=== PATIENT | female | born 1935 | race Two or more races ===

== ENCOUNTER 2024-03-01 16:18 | Inpatient (IN) | payer MEDICARE, MEDICAID ==
[~2024-03-01] VITALS: Ht 162.6 cm; Wt 67.6 kg
[2024-03-01 16:40] VITALS: PULSE 69; RESP 16; O2SAT 99
[2024-03-01 17:23] LABS: Basophils # (auto) 0 10 ^3/uL (0-0.2); Basophils % (auto) 0.1 % (0.0-2.0); Eosinophils # (auto) 0 10 ^3/uL (0-0.8); Hematocrit 34.3 % (36.0-46.0); Hemoglobin 11.4 g/dL (12.2-16.2); Lymphocytes # (auto) 0.2 10 ^3/uL (0.4-5.4); Lymphocytes % (auto) 2.1 % (10.0-50.0); Mean Corpuscular Hemoglobin 30.9 pg (28.0-32.0); Mean Corpuscular Hgb Conc. 33.4 g/dL (32.0-36.0); Mean Corpuscular Volume 92.7 fL (80.0-100.0); Monocytes # (auto) 0.3 10 ^3/uL (0-1.3); Monocytes % (auto) 3.2 % (0.0-12.0); Neutrophils # (auto) 9.2 10 ^3/uL (1.6-8.6); Neutrophils % (auto) 94.6 % (37.0-80.0); Red Cell Distribution Width 13.4 % (11.8-14.3); White Blood Cell 9.7 10^3/uL (4.4-10.8)
[2024-03-01 17:42] LABS: Albumin 3.9 g/dL (3.2-4.8); Alkaline Phosphatase 86 U/L (46-116); Anion Gap 6 (5-15); Aspartate Aminotransferase < 8 U/L (13-40); BUN/Creatinine Ratio 11.7 (10.0-20.0); Blood Urea Nitrogen 11 mg/dL (9-23); Calcium 9.9 mg/dL (8.7-10.4); Carbon Dioxide 24 mmol/L (20-30); Chloride 104 mmol/L (98-107); Glucose 319 mg/dL (74-106); Potassium 4.5 mmol/L (3.5-5.1); Sodium 134 mmol/L (136-145)
[2024-03-01 17:43] LABS: Bilirubin, Total 0.6 mg/dL (0.2-1.0); Total Protein 6.6 g/dL (5.7-8.2)
[2024-03-01 17:48] LABS: Alanine Aminotransferase < 9 U/L (7-40)
[2024-03-01] MEDS: ACETAMINOPHEN 325 MG TAB PO ONE (18:13)
[2024-03-01 18:34] LABS: Urine Bacteria None Seen /hpf (None Seen)
[2024-03-01 18:43] LABS: Urine Blood Negative /uL (Negative); Urine Clarity Clear (Clear); Urine Color Light-Yellow (Yellow); Urine Protein, UAD Negative (Negative); Urine Specific Gravity 1.036 (1.001-1.035); Urine Urobilinogen Normal (Negative); Urine WBC 1 /hpf (0 - 5); Urine pH 7.5 (5.0-9.0)
[2024-03-01] MEDS ORDERED: NITROGLYCERIN 0.4 MG SL TAB SL PRN (19:15)
[2024-03-01] MEDS ORDERED: DEXTROSE (50%) 50ML SYRG IV PRN (19:15)
[2024-03-01] MEDS ORDERED: MORPHINE SULFATE INJ 2 MG/ml SYRG IV PRN (19:15)
[2024-03-01] MEDS: SODIUM CHLORIDE 0.9% 1,000 ML IV SCH (19:30)
[2024-03-01] MEDS ORDERED: LISI20TA56 PO (19:31)
[2024-03-01] MEDS ORDERED: PRAV20TA3 PO (19:31)
[2024-03-01 19:50] VITALS: PULSE 57; RESP 15; O2SAT 97
[2024-03-01] MEDS: PRAVASTATIN SODIUM 20 MG TAB PO SCH (22:04)
[2024-03-01] MEDS ORDERED: PIOG1TAB51 PO (22:08)
[2024-03-01] MEDS ORDERED: METF-372 PO (22:08)
[2024-03-01] MEDS ORDERED: DAPA1TAB4 PO (22:08)
[2024-03-01 22:13] VITALS: BP 105/39; PULSE 59; RESP 18; TEMP 98.3; O2SAT 96
[2024-03-01] MEDS ORDERED: ASPI-543 PO (22:26)
[2024-03-02] VITALS (8 sets, daily range): BP systolic 88–112; BP diastolic 39–53; PULSE 52–68; RESP 15–20; TEMP 98.1–99.9; O2SAT 95–99
[2024-03-02] MEDS: ACCU-CHEK COMFORT CURVE STRIP VI SCH (00:28)
[2024-03-02] MEDS: InsuLIN REG 1unit/0.01ml Soln (100units/ml) SC SCH (00:29)
[2024-03-02 07:10] LABS: Basophils # (auto) 0 10 ^3/uL (0-0.2); Basophils % (auto) 0.3 % (0.0-2.0); Eosinophils # (auto) 0 10 ^3/uL (0-0.8); Eosinophils % (auto) 0.1 % (0.0-7.0); Hematocrit 31.9 % (36.0-46.0); Hemoglobin 10.6 g/dL (12.2-16.2); Lymphocytes # (auto) 0.3 10 ^3/uL (0.4-5.4); Lymphocytes % (auto) 6.5 % (10.0-50.0); Mean Corpuscular Hemoglobin 30.8 pg (28.0-32.0); Mean Corpuscular Hgb Conc. 33.4 g/dL (32.0-36.0); Mean Corpuscular Volume 92.3 fL (80.0-100.0); Monocytes # (auto) 0.2 10 ^3/uL (0-1.3); Monocytes % (auto) 4.7 % (0.0-12.0); Neutrophils # (auto) 4.7 10 ^3/uL (1.6-8.6); Neutrophils % (auto) 88.4 % (37.0-80.0); Red Blood Cells 3.46 10^6/uL (4.0-5.20); Red Cell Distribution Width 13.3 % (11.8-14.3); White Blood Cell 5.3 10^3/uL (4.4-10.8)
[2024-03-02 07:50] LABS: Alkaline Phosphatase 78 U/L (46-116); Anion Gap 7 (5-15); Calcium 9.4 mg/dL (8.5-10.1); Carbon Dioxide 24 mmol/L (20-30); Chloride 108 mmol/L (98-107); Potassium 3.9 mmol/L (3.5-5.1); Sodium 139 mmol/L (136-145)
[2024-03-02 07:51] LABS: BUN/Creatinine Ratio 18.6 (10.0-20.0); Blood Urea Nitrogen 13 mg/dL (9-23); Glucose 149 mg/dL (74-106); Triglycerides 106 mg/dL (< 150)
[2024-03-02 07:52] LABS: LDL Cholesterol 74 mg/dL (< 100)
[2024-03-02 07:53] LABS: Albumin 3.6 g/dL (3.2-4.8); Aspartate Aminotransferase 9 U/L (13-40); Bilirubin, Total 0.5 mg/dL (0.2-1.0); Cholesterol 131 mg/dL (< 200); HDL Cholesterol 38 mg/dL (40-59); Total Protein 5.9 g/dL (5.7-8.2)
[2024-03-02 07:55] LABS: Alanine Aminotransferase < 9 U/L (7-40)
[2024-03-02 09:15] LABS: Hepatitis B Surface Antigen Negative (Negative)
[2024-03-02] MEDS: PANTOPRAZOLE 40 MG/10 ML VIAL INJ IV SCH (09:20)
[2024-03-02] MEDS: LISINOPRIL 20 MG TAB PO SCH (09:20)
[2024-03-02] MEDS: ENOXAPARIN SOD 40 MG/0.4 ML SYRINGE SC SCH (09:21)
[2024-03-02 09:37] LABS: Hepatitis C Antibody Negative (Negative)
[2024-03-02] MEDS: ACETAMINOPHEN 325 MG TAB PO PRN (15:04)
[2024-03-02] MEDS: AMPICILLIN & SULBACTAM SODIUM 3 GM in SODIUM CHL 0.9% 100 ML IV SCH (15:22)
[2024-03-03] VITALS (8 sets, daily range): BP systolic 92–131; BP diastolic 37–56; PULSE 54–70; RESP 15–19; TEMP 97.7–99.5; O2SAT 94–100
[2024-03-03 06:36] LABS: Anion Gap 7 (5-15); Carbon Dioxide 24 mmol/L (20-30); Chloride 108 mmol/L (98-107); Sodium 139 mmol/L (136-145)
[2024-03-03 06:39] LABS: Basophils # (auto) 0 10 ^3/uL (0-0.2); Basophils % (auto) 0.4 % (0.0-2.0); Eosinophils # (auto) 0 10 ^3/uL (0-0.8); Eosinophils % (auto) 0.1 % (0.0-7.0); Hematocrit 31.2 % (36.0-46.0); Hemoglobin 10.4 g/dL (12.2-16.2); Lymphocytes # (auto) 0.5 10 ^3/uL (0.4-5.4); Lymphocytes % (auto) 10.3 % (10.0-50.0); Mean Corpuscular Hemoglobin 30.9 pg (28.0-32.0); Mean Corpuscular Hgb Conc. 33.2 g/dL (32.0-36.0); Mean Corpuscular Volume 92.9 fL (80.0-100.0); Monocytes # (auto) 0.4 10 ^3/uL (0-1.3); Neutrophils # (auto) 3.5 10 ^3/uL (1.6-8.6); Neutrophils % (auto) 79.2 % (37.0-80.0); Nucleated Red Blood Cells % 0.1 %; Red Blood Cells 3.36 10^6/uL (4.0-5.20); Red Cell Distribution Width 13.3 % (11.8-14.3); White Blood Cell 4.4 10^3/uL (4.4-10.8)
[2024-03-03 06:42] LABS: BUN/Creatinine Ratio 16.1 (10.0-20.0); Blood Urea Nitrogen 10 mg/dL (9-23); Glucose 152 mg/dL (74-106)
[2024-03-03 06:44] LABS: INR 1.03 (0.9-1.15); Partial Thromboplastin Time 26.6 SEC (24.5-34.5); Prothrombin Time 10.9 sec (9.3-11.8)
[2024-03-03] MEDS: Ensure HIGH Protein Vanilla 8oz Bottle PO SCH (11:55)
[2024-03-04] VITALS (8 sets, daily range): BP systolic 108–144; BP diastolic 35–65; PULSE 49–76; RESP 16–22; TEMP 97–99; O2SAT 92–100
[2024-03-04] MEDS: AMPICILLIN & SULBACTAM SODIUM 3 GM in SODIUM CHL 0.9% 100 ML IV SCH (08:48)
[2024-03-04] MEDS: ceFAZolin 1GM/50ML 100 ML IV ONE (16:59)
[2024-03-04] MEDS ORDERED: fentaNYL CITRATE 100 MCG/2 ML VL ONE ×2 (19:01→19:16)
[2024-03-04] MEDS ORDERED: MIDAZOLAM HCL 2MG/2ML 2ml VIAL (1mg/ml) ONE (19:01)
[2024-03-04] MEDS: LIDOCAINE W/ EPINEPHRINE 1% 20ML VIAL ONE (19:34)
[2024-03-04] MEDS: BUPIVACAINE 0.5% P/F INJ 10 ML VIAL ONE (19:34)
[2024-03-04] MEDS ORDERED: HYDROmorphone HCL 2 MG/ML VL/or syr IV PRN ×2 (20:00→20:30)
[2024-03-04] MEDS ORDERED: NEOSTIGMINE 1 MG/ML INJ (10mg/10ML VIAL) ONE (20:13)
[2024-03-04] MEDS ORDERED: GLYCOPYRROLATE 0.2 MG/ML 1ML VIAL ONE (20:13)
[2024-03-04] MEDS: HYDROmorphone HCL 2 MG/ML VL/or syr IV PRN (21:35)
[2024-03-04] MEDS: ONDANSETRON HCL 4 MG/2 ML VIAL IV ONE (21:38)
[2024-03-05] VITALS (34 sets, daily range): BP systolic 98–131; BP diastolic 35–47; PULSE 43–74; RESP 12–26; TEMP 98–99.7; O2SAT 94–100
[2024-03-05] MEDS: ONDANSETRON HCL 4 MG/2 ML VIAL IV PRN (01:23)
[2024-03-05 06:17] LABS: Basophils # (auto) 0 10 ^3/uL (0-0.2); Basophils % (auto) 0.2 % (0.0-2.0); Eosinophils # (auto) 0 10 ^3/uL (0-0.8); Hemoglobin 11.6 g/dL (12.2-16.2); Lymphocytes # (auto) 0.7 10 ^3/uL (0.4-5.4); Mean Corpuscular Hemoglobin 31.4 pg (28.0-32.0); Mean Corpuscular Volume 92.4 fL (80.0-100.0); Monocytes # (auto) 0.6 10 ^3/uL (0-1.3); Monocytes % (auto) 9.1 % (0.0-12.0); Neutrophils # (auto) 5.4 10 ^3/uL (1.6-8.6); Neutrophils % (auto) 79.7 % (37.0-80.0); Red Blood Cells 3.69 10^6/uL (4.0-5.20); Red Cell Distribution Width 13.1 % (11.8-14.3); White Blood Cell 6.8 10^3/uL (4.4-10.8)
[2024-03-05 06:32] LABS: Alanine Aminotransferase 12 U/L (7-40); Albumin 3.3 g/dL (3.2-4.8); Alkaline Phosphatase 105 U/L (46-116); Anion Gap 9 (5-15); Aspartate Aminotransferase 26 U/L (13-40); BUN/Creatinine Ratio 13.6 (10.0-20.0); Bilirubin, Total 0.2 mg/dL (0.2-1.0); Blood Urea Nitrogen 8 mg/dL (9-23); Calcium 9.3 mg/dL (8.7-10.4); Carbon Dioxide 22 mmol/L (20-30); Chloride 107 mmol/L (98-107); Glucose 136 mg/dL (74-106); Potassium 4.6 mmol/L (3.5-5.1); Sodium 138 mmol/L (136-145); Total Protein 5.7 g/dL (5.7-8.2)
[2024-03-05] MEDS: metroNIDAZOLE 500 MG TAB PO SCH (13:45)
[2024-03-05] MEDS: SODIUM CHLORIDE 0.9% 500 ML IV ONE (13:46)
[2024-03-05] MEDS: levoFLOXacin 500 MG TAB PO SCH (13:46)
[2024-03-05] MEDS: HYDROcodone-ACET 5/325MG TAB PO PRN (17:23)
[2024-03-06] VITALS (15 sets, daily range): BP systolic 88–128; BP diastolic 36–48; PULSE 62–82; RESP 14–25; TEMP 98.4–100.2; O2SAT 90–99
[2024-03-06 05:24] LABS: Anion Gap 4 (5-15); Carbon Dioxide 23 mmol/L (20-30); Chloride 108 mmol/L (98-107); Sodium 135 mmol/L (136-145)
[2024-03-06 05:26] LABS: Calcium 8.8 mg/dL (8.7-10.4)
[2024-03-06 05:30] LABS: Glucose 196 mg/dL (74-106)
[2024-03-06 05:43] LABS: Basophils # (auto) 0 10 ^3/uL (0-0.2); Basophils % (auto) 0.1 % (0.0-2.0); Eosinophils # (auto) 0 10 ^3/uL (0-0.8); Eosinophils % (auto) 0.1 % (0.0-7.0); Hemoglobin 10.9 g/dL (12.2-16.2); Lymphocytes # (auto) 0.7 10 ^3/uL (0.4-5.4); Lymphocytes % (auto) 7.7 % (10.0-50.0); Mean Corpuscular Hemoglobin 31.6 pg (28.0-32.0); Mean Corpuscular Hgb Conc. 34.2 g/dL (32.0-36.0); Mean Corpuscular Volume 92.6 fL (80.0-100.0); Monocytes # (auto) 0.7 10 ^3/uL (0-1.3); Monocytes % (auto) 8.3 % (0.0-12.0); Neutrophils # (auto) 7.3 10 ^3/uL (1.6-8.6); Neutrophils % (auto) 83.8 % (37.0-80.0); Nucleated Red Blood Cells % 0.1 %; Red Blood Cells 3.45 10^6/uL (4.0-5.20); Red Cell Distribution Width 13.4 % (11.8-14.3); White Blood Cell 8.7 10^3/uL (4.4-10.8)
[2024-03-06 06:04] LABS: BUN/Creatinine Ratio 8.9 (10.0-20.0); Blood Urea Nitrogen < 5 mg/dL (9-23)
[2024-03-07] VITALS (8 sets, daily range): BP systolic 96–117; BP diastolic 36–49; PULSE 62–86; RESP 16–18; TEMP 97.9–98.5; O2SAT 95–99
[2024-03-07] MEDS: Glucerna Carbsteady SHAKE Vanilla 8oz PO SCH (19:10)
[2024-03-08] VITALS (8 sets, daily range): BP systolic 103–132; BP diastolic 40–58; PULSE 57–78; RESP 16–20; TEMP 98–98.6; O2SAT 90–98
[2024-03-09] VITALS (10 sets, daily range): BP systolic 108–136; BP diastolic 51–61; PULSE 62–72; RESP 17–96; TEMP 97.9–99.1; O2SAT 95–96
[2024-03-09 12:38] LABS: Basophils # (auto) 0 10 ^3/uL (0-0.2); Basophils % (auto) 0.3 % (0.0-2.0); Eosinophils # (auto) 0 10 ^3/uL (0-0.8); Eosinophils % (auto) 0.3 % (0.0-7.0); Hematocrit 29.5 % (36.0-46.0); Hemoglobin 9.8 g/dL (12.2-16.2); Lymphocytes # (auto) 0.9 10 ^3/uL (0.4-5.4); Lymphocytes % (auto) 13.4 % (10.0-50.0); Mean Corpuscular Hemoglobin 30.8 pg (28.0-32.0); Mean Corpuscular Hgb Conc. 33.2 g/dL (32.0-36.0); Monocytes # (auto) 0.6 10 ^3/uL (0-1.3); Monocytes % (auto) 8.4 % (0.0-12.0); Neutrophils # (auto) 5.1 10 ^3/uL (1.6-8.6); Neutrophils % (auto) 77.6 % (37.0-80.0); Nucleated Red Blood Cells % 0.1 %; Red Blood Cells 3.17 10^6/uL (4.0-5.20); Red Cell Distribution Width 14.1 % (11.8-14.3); White Blood Cell 6.6 10^3/uL (4.4-10.8)
[2024-03-09 13:06] LABS: Alkaline Phosphatase 164 U/L (46-116); Anion Gap 4 (5-15); Aspartate Aminotransferase 14 U/L (13-40); BUN/Creatinine Ratio 10.3 (10.0-20.0); Blood Urea Nitrogen 6 mg/dL (9-23); Calcium 8.5 mg/dL (8.5-10.1); Carbon Dioxide 26 mmol/L (20-30); Chloride 106 mmol/L (98-107); Glucose 272 mg/dL (74-106); Potassium 3.9 mmol/L (3.5-5.1); Sodium 136 mmol/L (136-145)
[2024-03-09 13:08] LABS: Bilirubin, Total 0.3 mg/dL (0.2-1.0); Total Protein 5.1 g/dL (5.7-8.2)
[2024-03-09 13:11] LABS: Alanine Aminotransferase 9 U/L (7-40)
[2024-03-09] MEDS: levoFLOXacin 500MG 100 ML IV ONE (14:44)
[2024-03-09] MEDS: GASTROGRAFIN 120 ML SOL ONE (18:53)
[2024-03-10] VITALS (11 sets, daily range): BP systolic 98–129; BP diastolic 48–60; PULSE 61–77; RESP 16–22; TEMP 98.1–99.2; O2SAT 16–97
[2024-03-10] MEDS: levoFLOXacin 250MG 50 ML IV SCH (10:00)
[2024-03-10] MEDS: FUROSEMIDE 20 MG/2 ML VIAL IV ONE (12:25)
[2024-03-10] MEDS: POTASSIUM CHL 20 Meq TABLET PO ONE (12:26)
[2024-03-11] VITALS (9 sets, daily range): BP systolic 101–132; BP diastolic 40–66; PULSE 60–78; RESP 16–21; TEMP 98.1–98.9; O2SAT 0–99
[2024-03-11 06:33] LABS: Anion Gap 3 (5-15); Carbon Dioxide 32 mmol/L (20-30); Chloride 103 mmol/L (98-107); Sodium 138 mmol/L (136-145)
[2024-03-11 06:34] LABS: Calcium 8.9 mg/dL (8.5-10.1)
[2024-03-11 06:39] LABS: BUN/Creatinine Ratio 12.2 (10.0-20.0); Blood Urea Nitrogen 6 mg/dL (9-23); Glucose 183 mg/dL (74-106)
[2024-03-11 07:16] LABS: Hematocrit 27.8 % (36.0-46.0); Hemoglobin 9.5 g/dL (12.2-16.2); Mean Corpuscular Hemoglobin 31.2 pg (28.0-32.0); Mean Corpuscular Hgb Conc. 34.1 g/dL (32.0-36.0); Mean Corpuscular Volume 91.4 fL (80.0-100.0); Red Blood Cells 3.05 10^6/uL (4.0-5.20); Red Cell Distribution Width 13.9 % (11.8-14.3); White Blood Cell 6.5 10^3/uL (4.4-10.8)
[2024-03-11 07:19] LABS: Basophils % (manual) 0 (0.0-2.0); Blast Cells 0; Eosinophils % (manual) 0 (0-7); Metamyelocytes % 0; Myelocytes % 0; Promyelocytes % 0; Reactive Lymphocytes 0
[2024-03-11 08:09] LABS: Band Neutrophils % (manual) 1; Lymphocytes % (manual) 13 (10.0-50.0); Monocytes % (manual) 7 (0-12)
[2024-03-11 08:10] LABS: Platelet Estimate Adequate
[2024-03-11 08:11] LABS: RBC Morphology Normal
[2024-03-11] MEDS: ASPirin 81 mg TAB PO ONE (12:29)
[2024-03-11] MEDS: FUROSEMIDE 20 MG/2 ML VIAL IV ONE (12:29)
[2024-03-11] MEDS: POTASSIUM CHL 10 Meq TABLET PO ONE (12:29)
[2024-03-11] MEDS ORDERED: ATROPINE SULFATE 0.4 MG/1 ML VIAL IV ONE (16:00)
[2024-03-11] MEDS: DOCUSATE SOD 100 MG CAP PO PRN (21:54)
[2024-03-12 01:00] VITALS: BP 120/46; PULSE 64; RESP 17; TEMP 98.4; O2SAT 95
[2024-03-12 05:00] VITALS: BP 127/36; PULSE 71; RESP 18; TEMP 98.8; O2SAT 94
[2024-03-12] MEDS: PANTOPRAZOLE 40 MG TAB PO SCH (06:44)
[2024-03-12 07:34] LABS: Base Excess 8.4 mmol/L (-2.0-2.0)
[2024-03-12 08:00] VITALS: PULSE 72; RESP 16; O2SAT 90
[2024-03-12 09:00] VITALS: BP 138/57; PULSE 72; RESP 16; TEMP 98.4; O2SAT 90
[2024-03-12] MEDS: ASPirin 81 mg TAB PO SCH (09:17)
[2024-03-12] MEDS ORDERED: ASPI-498 OR (12:10)
[2024-03-12] MEDS ORDERED: ZOFR4T PO (12:10)
[2024-03-12] MEDS ORDERED: PANT40TA2 PO (12:10)
[2024-03-12 13:00] VITALS: BP 123/58; PULSE 75; RESP 16; TEMP 98.3; O2SAT 95
[2024-03-12 14:40] VITALS: BP 123/58; PULSE 75; RESP 16; TEMP 98.3; O2SAT 95
== END 2024-03-12 16:20 | disposition home or self-care (01) | DRG 853 ==
LOC: ER 16:18 → TELE 19:09 → TELE-WESTW 21:50 → DOU IN ICU 03-05 01:00 → TELE-EAST 03-06 10:10 → EAST 03-11 15:38
PROVIDERS: ADMIT Nurse Practitioner Family; ATTEND Internal Medicine
PROC: 0FT44ZZ Resection of Gallbladder, Percutaneous Endoscopic Approach (ICD-10-PCS; principal; 2024-03-04 18:58)
DX: A41.9 Sepsis, unspecified organism (principal); J96.00 Acute respiratory failure, unspecified whether with hypoxia or hypercapnia; K85.90 Acute pancreatitis without necrosis or infection, unspecified; K80.12 Calculus of gallbladder with acute and chronic cholecystitis without obstruction; K56.7 Ileus, unspecified; I82.612 Acute embolism and thrombosis of superficial veins of left upper extremity; G90.8 Other disorders of autonomic nervous system; E78.5 Hyperlipidemia, unspecified; I10 Essential (primary) hypertension; E11.9 Type 2 diabetes mellitus without complications; I44.0 Atrioventricular block, first degree; Z82.49 Family history of ischemic heart disease and other diseases of the circulatory system; Z87.442 Personal history of urinary calculi
CPT/HCPCS: 36415; 36600; 71045; 74018; 74176; 74250; 76700; 80048; 80053; 80061; 81001; 82805; 82962; 83036; 83690; 84484; 85007; 85025; 85027; 85610; 85730; 86803; 86850; 86900; 86901; 87040; 87081; 87086; 87340; 93005; 93306; 93886; 93970; 93971; 96360; 97110; 97116; 97163; 97530; C9113; G0378; J0461; J1815; J1956; J2250; J2405; J3490

== ENCOUNTER 2024-03-16 14:42 | Emergency (ER) | payer MEDICARE, MEDICAID ==
[~2024-03-16] VITALS: Ht 160 cm; Wt 79.0 kg
[~2024-03-16 14:42] MED LIST: ASPI-498 OR; ASPI-543 PO; DAPA1TAB4 PO; LISI20TA56 PO; METF-372 PO; PANT40TA2 PO; PIOG1TAB51 PO; PRAV20TA3 PO; ZOFR4T PO
[2024-03-16 15:11] LABS: Urine Bacteria None Seen /hpf (None Seen)
[2024-03-16 15:27] LABS: Urine Blood Negative /uL (Negative); Urine Clarity Clear (Clear); Urine Color Colorless (Yellow); Urine Protein, UAD Negative (Negative); Urine Specific Gravity 1.027 (1.001-1.035); Urine Urobilinogen Normal (Negative); Urine WBC 1 /hpf (0 - 5); Urine pH 7.5 (5.0-9.0)
[2024-03-16 16:14] LABS: Basophils # (auto) 0 10 ^3/uL (0-0.2); Basophils % (auto) 0.5 % (0.0-2.0); Eosinophils # (auto) 0 10 ^3/uL (0-0.8); Eosinophils % (auto) 0.6 % (0.0-7.0); Hematocrit 31.6 % (36.0-46.0); Hemoglobin 10.6 g/dL (12.2-16.2); Lymphocytes # (auto) 1.1 10 ^3/uL (0.4-5.4); Lymphocytes % (auto) 17.4 % (10.0-50.0); Mean Corpuscular Hemoglobin 30.7 pg (28.0-32.0); Mean Corpuscular Hgb Conc. 33.4 g/dL (32.0-36.0); Mean Corpuscular Volume 91.9 fL (80.0-100.0); Monocytes # (auto) 0.4 10 ^3/uL (0-1.3); Monocytes % (auto) 6.4 % (0.0-12.0); Neutrophils # (auto) 4.7 10 ^3/uL (1.6-8.6); Neutrophils % (auto) 75.1 % (37.0-80.0); Nucleated Red Blood Cells % 0.2 %; Red Blood Cells 3.43 10^6/uL (4.0-5.20); White Blood Cell 6.3 10^3/uL (4.4-10.8)
[2024-03-16 16:39] LABS: Alanine Aminotransferase 11 U/L (7-40); Albumin 3.9 g/dL (3.2-4.8); Alkaline Phosphatase 159 U/L (46-116); Anion Gap 2 (5-15); Aspartate Aminotransferase < 8 U/L (13-40); BUN/Creatinine Ratio 12.2 (10.0-20.0); Blood Urea Nitrogen 9 mg/dL (9-23); Calcium 9.5 mg/dL (8.7-10.4); Carbon Dioxide 31 mmol/L (20-30); Chloride 102 mmol/L (98-107); Glucose 339 mg/dL (74-106); Magnesium 1.6 mg/dL (1.6-2.6); Sodium 135 mmol/L (136-145)
[2024-03-16 16:40] LABS: Bilirubin, Total 0.3 mg/dL (0.2-1.0); Total Protein 6.6 g/dL (5.7-8.2)
[2024-03-16] MEDS: InsuLIN REG 1unit/0.01ml Soln (100units/ml) IV ONE (17:15)
[2024-03-16] MEDS: SODIUM CHLORIDE 0.9% 1,000 ML IV ONE (17:15)
[2024-03-16] MEDS ORDERED: METF-372 PO (19:52)
[2024-03-16 20:10] VITALS: BP 172/64; PULSE 70; RESP 18; TEMP 97.8; O2SAT 96
== END 2024-03-16 20:22 | disposition home or self-care (01) ==
LOC: ER 14:42
DX: E11.65 Type 2 diabetes mellitus with hyperglycemia (principal); E78.5 Hyperlipidemia, unspecified; I10 Essential (primary) hypertension; Z90.49 Acquired absence of other specified parts of digestive tract
CPT/HCPCS: 36415; 80053; 81001; 82962; 83605; 83735; 85025; 96361; 96374; 99283; J1815; J7030

== ENCOUNTER 2024-06-21 14:38 | Inpatient (IN) | payer MEDICARE, MEDICAID ==
[~2024-06-21] VITALS: Ht 162.6 cm; Wt 94.5 kg
[2024-06-21 15:33] LABS: Basophils # (auto) 0 10 ^3/uL (0-0.2); Basophils % (auto) 0.4 % (0.0-2.0); Eosinophils # (auto) 0 10 ^3/uL (0-0.8); Eosinophils % (auto) 0.2 % (0.0-7.0); Hematocrit 36.9 % (36.0-46.0); Hemoglobin 12.3 g/dL (12.2-16.2); Lymphocytes % (auto) 30.3 % (10.0-50.0); Mean Corpuscular Hemoglobin 31.4 pg (28.0-32.0); Mean Corpuscular Hgb Conc. 33.3 g/dL (32.0-36.0); Mean Corpuscular Volume 94.3 fL (80.0-100.0); Monocytes # (auto) 0.3 10 ^3/uL (0-1.3); Monocytes % (auto) 8.6 % (0.0-12.0); Neutrophils % (auto) 60.5 % (37.0-80.0); Platelet Count (auto) 155 10^3/uL (140-450); Red Blood Cells 3.91 10^6/uL (4.0-5.20); Red Cell Distribution Width 15.2 % (11.8-14.3); White Blood Cell 3.4 10^3/uL (4.4-10.8)
[2024-06-21 15:49] LABS: Albumin 4.1 g/dL (3.2-4.8); Alkaline Phosphatase 75 U/L (46-116); Anion Gap 9 (5-15); Aspartate Aminotransferase < 8 U/L (13-40); BUN/Creatinine Ratio 13.9 (10.0-20.0); Bilirubin, Total 0.3 mg/dL (0.2-1.0); Blood Urea Nitrogen 14 mg/dL (9-23); Carbon Dioxide 25 mmol/L (20-31); Chloride 101 mmol/L (98-107); Sodium 135 mmol/L (136-145); Total Protein 6.6 g/dL (5.7-8.2)
[2024-06-21 16:13] LABS: Alanine Aminotransferase < 9 U/L (7-40)
[2024-06-21 16:15] LABS: Glucose 410 mg/dL (74-106)
[2024-06-21] MEDS: SODIUM CHLORIDE 0.9% 1,000 ML IV ONE (18:18)
[2024-06-21] MEDS: InsuLIN REG 1unit/0.01ml Soln (100units/ml) IV ONE (18:19)
[2024-06-21 19:20] VITALS: PULSE 64; RESP 20; O2SAT 95
[2024-06-21 20:04] LABS: Urine Bacteria None Seen /hpf (None Seen)
[2024-06-21 20:25] LABS: Urine Blood Negative /uL (Negative); Urine Clarity Clear (Clear); Urine Color Colorless (Yellow); Urine Protein, UAD Negative (Negative); Urine Specific Gravity 1.012 (1.001-1.035); Urine Urobilinogen Normal (Negative); Urine WBC 1 /hpf (0 - 5)
[2024-06-21] MEDS ORDERED: ONDANSETRON HCL 4 MG/2 ML VIAL IV PRN (22:15)
[2024-06-21] MEDS ORDERED: DEXTROSE (50%) 50ML SYRG IV PRN (22:15)
[2024-06-21] MEDS: ACETAMINOPHEN 325 MG TAB PO PRN (22:16)
[2024-06-21 23:55] VITALS: BP 141/50; PULSE 54; RESP 16; TEMP 97.8; O2SAT 95
[2024-06-22] VITALS (7 sets, daily range): BP systolic 113–151; BP diastolic 40–71; PULSE 54–67; RESP 18–20; TEMP 97.3–98.3; O2SAT 94–97
[2024-06-22] MEDS: ACCU-CHEK COMFORT CURVE STRIP VI SCH (00:24)
[2024-06-22] MEDS: InsuLIN REG 1unit/0.01ml Soln (100units/ml) SC SCH (00:34)
[2024-06-22 07:19] LABS: Chloride 108 mmol/L (98-107); Potassium 4.1 mmol/L (3.5-5.1); Sodium 142 mmol/L (136-145)
[2024-06-22 07:20] LABS: Anion Gap 4 (5-15); Calcium 9.8 mg/dL (8.7-10.4); Carbon Dioxide 30 mmol/L (20-31)
[2024-06-22 07:25] LABS: BUN/Creatinine Ratio 17.8 (10.0-20.0); Blood Urea Nitrogen 13 mg/dL (9-23); Glucose 116 mg/dL (74-106)
[2024-06-22] MEDS: ASPirin 81 mg TAB PO SCH (09:07)
[2024-06-22] MEDS: LISINOPRIL 20 MG TAB PO SCH (09:07)
[2024-06-22] MEDS: ENOXAPARIN SOD 40 MG/0.4 ML SYRINGE SC SCH (09:08)
[2024-06-22] MEDS: PRAVASTATIN SODIUM 20 MG TAB PO SCH (22:30)
[2024-06-22] MEDS ORDERED: LORazepam 2MG/ML-1ML VIAL IV PRN (22:45)
[2024-06-23] VITALS (8 sets, daily range): BP systolic 115–146; BP diastolic 51–59; PULSE 58–64; RESP 17–19; TEMP 97.9–98.5; O2SAT 91–96
[2024-06-24 01:00] VITALS: BP 131/45; PULSE 59; RESP 18; TEMP 97.6; O2SAT 92
[2024-06-24 05:00] VITALS: BP 116/47; PULSE 54; RESP 19; TEMP 97.4; O2SAT 92
[2024-06-24 07:07] LABS: RPR Non Reactive (Non Reactive)
[2024-06-24 08:00] VITALS: RESP 18; O2SAT 94
[2024-06-24] MEDS: LACTULOSE 20Gm/30ML SOLN PO ONE (08:17)
[2024-06-24 09:00] VITALS: BP 132/53; PULSE 63; RESP 16; TEMP 98.2; O2SAT 90
[2024-06-24] MEDS ORDERED: ASPI-325 PO (09:12)
[2024-06-24 10:09] VITALS: BP 132/53; PULSE 62; RESP 18; TEMP 98; O2SAT 95
== END 2024-06-24 12:50 | disposition home or self-care (01) | DRG 69 ==
LOC: ER 14:38 → OVERFLOW 22:09 → WEST WING 23:51
PROVIDERS: ADMIT Internal Medicine; ATTEND Internal Medicine
DX: G45.9 Transient cerebral ischemic attack, unspecified (principal); E11.00 Type 2 diabetes mellitus with hyperosmolarity without nonketotic hyperglycemic-hyperosmolar coma (NKHHC); I63.81 Other cerebral infarction due to occlusion or stenosis of small artery; E11.65 Type 2 diabetes mellitus with hyperglycemia; I10 Essential (primary) hypertension; E78.5 Hyperlipidemia, unspecified; G31.9 Degenerative disease of nervous system, unspecified; Z90.49 Acquired absence of other specified parts of digestive tract; Z82.49 Family history of ischemic heart disease and other diseases of the circulatory system; Z83.3 Family history of diabetes mellitus; Z79.82 Long term (current) use of aspirin; B94.8 Sequelae of other specified infectious and parasitic diseases
CPT/HCPCS: 36415; 70450; 70551; 71045; 80048; 80053; 81001; 82306; 82607; 82962; 83036; 84443; 84484; 85025; 86592; 93005; 95819; 96361; 96374; 97163; G0378; J1815

== ENCOUNTER → 2024-08-04 | Outpatient (CLI) | payer MEDICARE, MEDICAID ==
[~2024-08-04] MED LIST changes: +ASPI-325 PO; -ASPI-498 OR; -ASPI-543 PO; -DAPA1TAB4 PO; -PANT40TA2 PO; -ZOFR4T PO
== END | disposition home or self-care (01) ==
LOC: LAB 12:28
PROVIDERS: ATTEND Internal Medicine
DX: G89.29 Other chronic pain (principal); R10.9 Unspecified abdominal pain; K86.2 Cyst of pancreas; D37.9 Neoplasm of uncertain behavior of digestive organ, unspecified; R93.89 Abnormal findings on diagnostic imaging of other specified body structures; K86.89 Other specified diseases of pancreas; Z79.899 Other long term (current) drug therapy
CPT/HCPCS: 36415; 82565; 84520; 86301

== ENCOUNTER 2024-08-23 23:56 | Inpatient (IN) | payer MEDICARE, MEDICAID ==
[~2024-08-23] VITALS: Ht 157.5 cm; Wt 53.1 kg
[2024-08-24] MEDS: levETIRAcetam 1000 mg/100ml 100 ML IV ONE (00:15)
--- NOTE | 2024-08-24 00:15 | ED.PDOC ---
History of Present Illness HPI Comments 89-year-old female with PMHx HLD, HTN, DM presents postictal s/p seizure- activity. Patient had a witnessed seizure at home by family whom called 911. Patient is pleasantly confused and is a poor historian at this time. Unable to verify if patient has a seizure disorder. No seizure meds listed in medication l ist per EMS. Patient is hyperglycemic at 341. No other symptoms or modifying factors present at this time. Chief Complaint: Seizure Time Seen by MD: 00:09 Primary Care Provider: UNKNOWN Reviewed Notes: Medications, Allergies Allergies: Coded Allergies: No Known Drug Allergy (Verified Allergy, Unknown, 03/01/24) Home Meds Active Scripts Aspirin (Aspirin Low Dose) 81 Mg Tab, 81 MG PO DAILY for 30 Days, #30 TAB Prov:PAIGE RAVI 06/24/24 Metformin Hydrochloride (Metformin Hcl) 1,000 Mg Tab, 1 TAB PO BID for 30 Days, #60 TAB 0 Refills Prov:ANTONY OLIVERA DO 03/16/24 Reported Medications Metformin Hydrochloride (Metformin Hcl) 1,000 Mg Tab, 1 TAB PO BID 03/01/24 Pioglitazone Hydrochloride (PIOGLITAZONE HCL) 45 Mg Tab, 1 TAB PO DAILY 03/01/24 Lisinopril (Lisinopril) 20 Mg Tab, 1 TAB PO DAILY, #30 TAB 5 Refills 03/01/24 Pravastatin Sodium (PRAVACHOL TABLET) 20 Mg Tb, 2 TAB PO HS 03/01/24 Information Source: Emergency Med Personnel Mode of Arrival: EMS Severity: Moderate Timing: Minutes Duration: Since onset Prehospital treatment: Accucheck (341) Past Medical History PAST MEDICAL HISTORY: DM, High Lipids, HTN Surgical History: Cholecystectomy, Hernia Repair [employer] History: Denies all [employer] Hx Family History Family History: Reviewed,noncontributory to illness Social History Smoker: Non-Smoker Alcohol: Denies ETOH Use Drugs: Denies Drug Use Lives In: Home Constitutional: denies: chills, diaphoresis, fatigue, fever, malaise, sweats, weakness, others EENTM: denies: blurred vision, double vision, ear bleeding, ear discharge, ear drainage, ear pain, ear ringing, eye pain, eye redness, hearing loss, mouth pain, mouth swelling, nasal discharge, nose bleeding, nose congestion, nose pain, photophobia, tearing, throat pain, throat swelling, voice changes, others Respiratory: denies: cough, hemoptysis, orthopnea, SOB at rest, shortness of breath, SOB with excertion, stridor, wheezing, others Cardiovascular: denies: chest pain, dizzy spells, diaphoresis, Dyspnea on exertion, edema, irregular heart beat, left arm pain, lightheadedness, palpitations, PND, syncope, others Gastrointestinal: denies: abdomen distended, abdominal pain, blood streaked bowels, constipated, diarrhea, dysphagia, difficulty swallowing, hematemesis, melena, nausea, poor appetite, poor fluid intake, rectal bleeding, rectal pain, vomiting, others Genitourinary: denies: abnormal vagina bleeding, burning, dyspareunia, dysuria, flank pain, frequency, hematuria, incontinence, pain, , vagina discharge, urgency, others Neurological: reports: seizure; denies: dizziness, fainting, headache, left sided numbness, left sided weakness, numbness, paresthesia, pre-existing deficit, right sided numbness, right sided weakness, speech problems, tingling, tremors, weakness, others Musculoskeletal: denies: back pain, gout, joint pain, joint swelling, muscle pain, muscle stiffness, neck pain, others Integumetry: denies: bruises, change in color, change in hair/nails, dryness, laceration, lesions, lumps, rash, wounds, others Allergic/Immunocompromised: denies: Difficulty Healing, Frequent Infections, Hives, Itching, others Hematologic/Lymphatic: denies: anemia, blood clots, easy bleeding, easy bruising, swollen glands, others Endocrine: denies: excessive hunger, excessive sweating, excessive thirst, excessive urination, flushing, intolerance to cold, intolerance to heat, unexplained weight gain, unexplained weight loss, others Psychiatric: denies: anxiety, bipolar disorder, depression, hopeless, panic disorder, schizophrenia, sleepless, suicidal, others All Other Systems: Reviewed and Negative Physical Exam General Appearance: No Apparent Distress, Normal, Other (PLEASANTLY CONFUSED; POSTICTAL) HEENT: Normal ENT Inspection, Pharynx Normal, TMs Normal Neck: Full Range of Motion, Non-Tender, Normal, Normal Inspection Respiratory: Chest Non-Tender, Lungs Clear, No Accessory Muscle Use, No Respiratory Distress, Normal Breath Sounds Cardiovascular: No Edema, No JVD, No Murmur, No Gallop, Normal Peripheral Pulses, Regular Rate/Rhythm Breast Exam: Deferred Gastrointestinal: No Organomegaly, Non Tender, No Pulsatile Mass, Normal Bowel Sounds, Soft Genitalia: Deferred Pelvic: Deferred Rectal: Deferred Extremities: No calf tenderness, Normal capillary refill, Normal inspection, Normal range of motion, Non-tender, No pedal edema Musculoskeletal : Apperance: Normal Neurologic: Alert, conduit worker II-XII nml as Tested, No Motor Deficits, Normal Affect, Normal Mood, No Sensory Deficits Cerebellar Function: Normal Reflexes: Normal Skin: Dry, Normal Color, Warm Lymphatic: No Adenopathy Was a procedure done? Was a procedure done?: No Differential Dx Considerations may include: Epilepsy, electrolyte abnormalities, infectious etiology X-Ray, Labs, Meds, VS Vital Signs Date Time Temp Pulse Resp B/P (MAP) Pulse Ox O2 Delivery O2 Flow Rate FiO2 08/24/24 04:00 98 20 148/67 (94) 95 08/24/24 02:00 98.0 112 20 165/77 (106) 99 98.0 08/24/24 01:45 Nasal Cannula* 2 28 08/24/24 01:16 119 22 158/87 (110) 99 08/24/24 00:06 98.4 70 18 172/71 (104) 96 08/23/24 23:58 70 Lab Test 08/24/24 01:58 08/24/24 00:22 Range/Units Urine Color Colorless Yellow Urine Clarity Clear Clear Urine pH 6.5 5.0-9.0 Urine Specific [place] 1.016 1.001-1.035 Urine Protein Negative Negative Urine Ketones Negative Negative Urine Blood Negative Negative /uL Urine Nitrite Negative Negative Urine Bilirubin Negative Negative Urine Urobilinogen Normal Negative mg/dL Urine Leukocyte Esterase 2+ Negative /uL Urine RBC 1 0 - 4 /hpf Urine WBC 5 0 - 5 /hpf Urine Squamous Epithelial Cells Few <5 /hpf Urine Bacteria None seen None Seen /hpf Urine Glucose 4+ H Normal mg/dL White Blood Count 3.6 L 4.4-10.8 10^3/uL Red Blood Count 3.68 L 4.0-5.20 10^6/uL Hemoglobin 11.7 L 12.2-16.2 g/dL Hematocrit 35.1 L 36.0-46.0 % Mean Corpuscular Volume 95.2 80.0-100.0 fL Mean Corpuscular Hemoglobin 31.7 28.0-32.0 pg Mean Corpuscular Hemoglobin Concent 33.4 32.0-36.0 g/dL Red Cell Distribution Width 14.3 11.8-14.3 % Platelet Count 166 140-450 10^3/uL Mean Platelet Volume 9.1 6.9-10.8 fL Neutrophils (%) (Auto) 67.4 37.0-80.0 % Lymphocytes (%) (Auto) 23.3 10.0-50.0 % Monocytes (%) (Auto) 8.8 0.0-12.0 % Eosinophils (%) (Auto) 0.1 0.0-7.0 % Basophils (%) (Auto) 0.4 0.0-2.0 % Neutrophils # (Auto) 2.4 1.6-8.6 10 ^3/uL Lymphocytes # (Auto) 0.8 0.4-5.4 10 ^3/uL Monocytes # (Auto) 0.3 0-1.3 10 ^3/uL Eosinophils # (Auto) 0 0-0.8 10 ^3/uL Basophils # (Auto) 0 0-0.2 10 ^3/uL Nucleated Red Blood Cells 0.0 % Sodium Level 139 136-145 mmol/L Potassium Level 4.1 3.5-5.1 mmol/L Chloride Level 100 98-107 mmol/L Carbon Dioxide Level 30 20-31 mmol/L Anion Gap 9 5-15 Blood Urea Nitrogen 17 9-23 mg/dL Creatinine 0.86 0.550-1.02 mg/dL Glomerular Filtration Rate Calc 65 >90 mL/min BUN/Creatinine Ratio 19.8 10.0-20.0 Serum Glucose 311 H 74-106 mg/dL Calcium Level 10.4 8.7-10.4 mg/dL Current Medications Medications (Trade) Dose Ordered Sig/Mumtaz Route Start Time Stop Time Status Last Admin Levetiracetam 100 ml @ 400 mls/hr ONCE ONCE IV 08/24/24 00:15 08/24/24 00:29 DC 08/24/24 00:15 Time of 1ST Reevaluation: 00:39 Reevaluation 1ST: Unchanged Patient Education/Counseling: Diagnosis, Treatment, Prognosis Family Education/Counseling: No Family Present Departure 1 Departure Time of Disposition: 04:33 (Patient with multiple seizures despite treatment as well as well as a likely syncopal episode that occurred while here. We will admit patient for further workup.) Impression: Primary Impression: Seizure Additional Impression: Syncope and collapse Disposition: ADMITTED INPATIENT Admit to: Med Surg Condition: Serious Critical Care Note Critical Care Time?: No Stability Stability form required: No I personally scribed for SELMA EPTERSON MD ([email or web address]) on 08/24/24 at 00:15. Electronically submitted by Jarred Mathias ([email or web address]). SELMA PETERSON MD Aug 24, 2024 00:15
[2024-08-24 00:39] LABS: Basophils # (auto) 0 10 ^3/uL (0-0.2); Basophils % (auto) 0.4 % (0.0-2.0); Eosinophils # (auto) 0 10 ^3/uL (0-0.8); Eosinophils % (auto) 0.1 % (0.0-7.0); Hematocrit 35.1 % (36.0-46.0); Hemoglobin 11.7 g/dL (12.2-16.2); Lymphocytes # (auto) 0.8 10 ^3/uL (0.4-5.4); Lymphocytes % (auto) 23.3 % (10.0-50.0); Mean Corpuscular Hemoglobin 31.7 pg (28.0-32.0); Mean Corpuscular Hgb Conc. 33.4 g/dL (32.0-36.0); Mean Corpuscular Volume 95.2 fL (80.0-100.0); Monocytes # (auto) 0.3 10 ^3/uL (0-1.3); Monocytes % (auto) 8.8 % (0.0-12.0); Neutrophils # (auto) 2.4 10 ^3/uL (1.6-8.6); Neutrophils % (auto) 67.4 % (37.0-80.0); Platelet Count (auto) 166 10^3/uL (140-450); Red Blood Cells 3.68 10^6/uL (4.0-5.20); Red Cell Distribution Width 14.3 % (11.8-14.3); White Blood Cell 3.6 10^3/uL (4.4-10.8)
[2024-08-24 00:47] LABS: Anion Gap 9 (5-15); Carbon Dioxide 30 mmol/L (20-31); Chloride 100 mmol/L (98-107); Potassium 4.1 mmol/L (3.5-5.1); Sodium 139 mmol/L (136-145)
[2024-08-24 00:48] LABS: Calcium 10.4 mg/dL (8.7-10.4)
[2024-08-24 00:53] LABS: BUN/Creatinine Ratio 19.8 (10.0-20.0); Blood Urea Nitrogen 17 mg/dL (9-23)
[2024-08-24 00:55] LABS: Glucose 311 mg/dL (74-106)
[2024-08-24 02:45] LABS: Urine Bacteria None Seen /hpf (None Seen)
[2024-08-24 03:10] LABS: Urine Blood Negative /uL (Negative); Urine Clarity Clear (Clear); Urine Color Colorless (Yellow); Urine Protein, UAD Negative (Negative); Urine Specific Gravity 1.016 (1.001-1.035); Urine Urobilinogen Normal (Negative); Urine WBC 5 /hpf (0 - 5); Urine pH 6.5 (5.0-9.0)
--- NOTE | 2024-08-24 04:05 | DVH ---
CHEST RADIOGRAPH Indication: seizure and collapse Technique: Single frontal view of the chest was obtained Comparison: XY CHEST PORTABLE on DOS: 06/21/24, XY CHEST PORTABLE on DOS: 03/01/24 IMPRESSION: There are low lung volumes. The heart is prominent size. Increased interstitial markings and pulmona ry vascular congestion. No sizable effusion or pneumothorax.
--- NOTE | 2024-08-24 04:07 | DVH ---
CT HEAD WITHOUT CONTRAST INDICATION: seizure and collapse EXAM DATE: 08/24/2024 03:41 AM COMPARISON: MRI BRAIN HEAD WO CONTRAST on DOS: 06/22/24, CT HEAD WITHOUT CONTRAST on DOS: 06/21/24 RADIATION DOSE: CTDIvol: 58.14 mGy, DLP: 940.01 mGy*cm Technique: Noncontrast CT scans of the head were obtained from the vertex to the skull base. Sagittal and coronal reconstructions were provided. All CT scans at this medical facility are performed using dose modulation techniques as appropriate t o a performed exam including the following: Automated exposure control was utilized; adjustment of th e MA and/or KV according to patient size; and use of iterative reconstruction technique. FINDINGS: The posterior fossa demonstrates a 4th ventricle to midline without mass impression. The ventricles a ppear appropriate in size and symmetry, unchanged. Focal hypodensity in the left basal ganglia likely represents prior lacunar infarct. There is diffuse cerebral atrophy. No findings to suggest acute te rritorial infarction, intracranial mass, or midline shift. No intracranial hemorrhage. The calvarium appears intact. IMPRESSION: 1. No acute intracranial abnormality. 2. Cerebral atrophy and prior lacunar infarct.
[2024-08-24] MEDS ORDERED: NITROGLYCERIN 0.4 MG SL TAB SL PRN (05:15)
[2024-08-24] MEDS ORDERED: MORPHINE SULFATE INJ 2 MG/ml SYRG IV PRN (05:15)
--- NOTE | 2024-08-24 05:16 | DVHHPRES ---
History of Present Illness Resident Creating Document: CONNIE AVALOS RESIDENT History of Present Illness Ms. Moyer, a 89 year old female with past medical history significant for hypertension, diabetes, dyslipidemia, CAD burden, cholecystectomy, hernia repair previous history of stroke / TIA during January of this year comes with seizure /seizure-like symptom witnessed by the family. Previously patient had been hospitalized during June and January of this year in the hospital with possible partial simple seizure, likely triggered by hypoglycemia with Ritesh paralysis/questionable stroke/ TIA. In-hospital neurology evaluation was done. This time patient presents with seizure BG WNL but noted to have UTI which could be a possible trigger. Patient admitted in hospital at [facility] for further evaluation and treatment. Primarily Uzbek speaking, poor historian but denies any other systemic signs except incontinence or bladder fullness. Cardiovascular: HTN, hyperipidemia BANQUET CAPTAIN: CVA Past Surgical History: Cholecystectomy, Other (hernia repair) Family History: None (Non contributary. ) Smoke: No ALCOHOL: none Drugs: None Lives: with Family Domestic Violence: Neg Review of Systems Constitutional: No: Fever, Chills, Sweats, Weakness, Malaise, Other Eyes: No: Pain, Vision change, Conjunctivae inflammation, Eyelid inflammation, Other, Redness ENT: No: Ear pain, Ear discharge, Nose pain, Nose discharge, Nose congestion, Mouth pain, Mouth swelling, Throat pain, Throat swelling, Other Respiratory: No: Cough, Dry, Shortness of breath, SOB with excertion, Wheezing, Hemoptysis, Pleuritic Pain, Sputum, Wheezing, Other Cardiovascular: No: Chest Pain, Palpitations, Orthopnea, Paroxysmal Noc. Dyspnea, Edema, Lt Headedness, Other Gastrointestinal: No: Nausea, Vomiting, Abdominal Pain, Diarrhea, Constipation, Melena, Hematochezia, Other Genitourinary: No Dysuria, No Frequency, No Incontinence, No Hematuria, No Retention, No Other Musculoskeletal: No: other, neck pain, shoulder pain, arm pain, back pain, hand pain, leg pain, foot pain Neurological: Weakness, Numbness, Seizures Allergies: Coded Allergies: No Known Drug Allergy (Verified Allergy, Unknown, 03/01/24) Medications Current Medications Medications Dose Ordered Sig/Mumtaz Route Start Time Stop Time Status Last Admin Dose Admin Nitroglycerin 0.4 mg Q5MINP PRN SL 08/24/24 05:15 Morphine Sulfate 2 mg Q30M PRN IV 08/24/24 05:15 Exam Vital Signs Vital Signs Date Time Temp Pulse Resp B/P (MAP) Pulse Ox O2 Delivery O2 Flow Rate FiO2 08/24/24 04:00 98 20 148/67 (94) 95 08/24/24 02:00 98.0 98.0 08/24/24 01:45 Nasal Cannula* 2 28 General Appearance: Alert, Oriented X3, Cooperative, No acute distress HEENT: Atraumatic, EOMI, Mucous membr. moist/pink Respiratory: Clear to auscultation, Normal air movement, Other (on 2L NC likely for comfort measures. saturation well. ) Cardiovascular: Regular rate, Normal S1, Normal S2, No murmurs Abdominal: Normal bowel sounds, Soft, No tenderness, Other (suprapubic tenderness noted. no CVA angle tenderness. ) Extremities: No clubbing, No cyanosis, No edema, Normal pulses, No tenderness/swelling Skin: No rashes, No breakdown, No significant lesion Neuro: Normal speech, Strength at 5/5 X4 ext, Normal tone, Sensation intact, Cranial nerves 3-12 NL, Reflexes 2+, Other (Gait deferred.) Psych/Mental Status: Mental status NL, Mood NL Labs/Xrays Labs Test 08/24/24 01:58 08/24/24 00:22 Range/Units Urine Color Colorless Yellow Urine Clarity Clear Clear Urine pH 6.5 5.0-9.0 Urine Specific [place] 1.016 1.001-1.035 Urine Protein Negative Negative Urine Ketones Negative Negative Urine Blood Negative Negative /uL Urine Nitrite Negative Negative Urine Bilirubin Negative Negative Urine Urobilinogen Normal Negative mg/dL Urine Leukocyte Esterase 2+ Negative /uL Urine RBC 1 0 - 4 /hpf Urine WBC 5 0 - 5 /hpf Urine Squamous Epithelial Cells Few <5 /hpf Urine Bacteria None seen None Seen /hpf Urine Glucose 4+ H Normal mg/dL White Blood Count 3.6 L 4.4-10.8 10^3/uL Red Blood Count 3.68 L 4.0-5.20 10^6/uL Hemoglobin 11.7 L 12.2-16.2 g/dL Hematocrit 35.1 L 36.0-46.0 % Mean Corpuscular Volume 95.2 80.0-100.0 fL Mean Corpuscular Hemoglobin 31.7 28.0-32.0 pg Mean Corpuscular Hemoglobin Concent 33.4 32.0-36.0 g/dL Red Cell Distribution Width 14.3 11.8-14.3 % Platelet Count 166 140-450 10^3/uL Mean Platelet Volume 9.1 6.9-10.8 fL Neutrophils (%) (Auto) 67.4 37.0-80.0 % Lymphocytes (%) (Auto) 23.3 10.0-50.0 % Monocytes (%) (Auto) 8.8 0.0-12.0 % Eosinophils (%) (Auto) 0.1 0.0-7.0 % Basophils (%) (Auto) 0.4 0.0-2.0 % Neutrophils # (Auto) 2.4 1.6-8.6 10 ^3/uL Lymphocytes # (Auto) 0.8 0.4-5.4 10 ^3/uL Monocytes # (Auto) 0.3 0-1.3 10 ^3/uL Eosinophils # (Auto) 0 0-0.8 10 ^3/uL Basophils # (Auto) 0 0-0.2 10 ^3/uL Nucleated Red Blood Cells 0.0 % Sodium Level 139 136-145 mmol/L Potassium Level 4.1 3.5-5.1 mmol/L Chloride Level 100 98-107 mmol/L Carbon Dioxide Level 30 20-31 mmol/L Anion Gap 9 5-15 Blood Urea Nitrogen 17 9-23 mg/dL Creatinine 0.86 0.550-1.02 mg/dL Glomerular Filtration Rate Calc 65 >90 mL/min BUN/Creatinine Ratio 19.8 10.0-20.0 Serum Glucose 311 H 74-106 mg/dL Calcium Level 10.4 8.7-10.4 mg/dL [place] [address] Ph: [phone] DIAGNOSTIC IMAGING Diagnostic Imaging Report : [id number] Signed PATIENT: MOJGAN MOYER I ACCT: [id number] UNIT: [id number] : 1935 LOC: ER ROOM / BED: / AGE / SEX: 89 / F ADM STATUS: REG ER SERVICE 0336 ORDERING PHYSICIAN: SELMA PETERSON MD PROCEDURE(s): HWOCT - HEAD WITHOUT CONTRAST REASON: seizure and collapse ORDER NUMBER(s): [id number], ACCESSION NUMBER(s): [id number] CT HEAD WITHOUT CONTRAST INDICATION: seizure and collapse EXAM DATE: 08/24/2024 03:41 AM COMPARISON: MRI BRAIN HEAD WO CONTRAST on DOS: 06/22/24, CT HEAD WITHOUT CONTRAST on DOS: 06/21/24 RADIATION DOSE: CTDIvol: 58.14 mGy, DLP: 940.01 mGy*cm Technique: Noncontrast CT scans of the head were obtained from the vertex to the skull base. Sagittal and coronal reconstructions were provided. All CT scans at this medical facility are performed using dose modulation techniques as appropriate to a performed exam including the following: Automated exposure control was utilized; adjustment of the MA and/or KV according to patient size; and use of iterative reconstruction technique. FINDINGS: The posterior fossa demonstrates a 4th ventricle to midline without mass impression. The ventricles appear appropriate in size and symmetry, unchanged. Focal hypodensity in the left basal ganglia likely represents prior lacunar infarct. There is diffuse cerebral atrophy. No findings to suggest acute territorial infarction, intracranial mass, or midline shift. No intracranial hemorrhage. The calvarium appears intact. IMPRESSION: 1. No acute intracranial abnormality. 2. Cerebral atrophy and prior lacunar infarct. ATED BY: NEAL CASTRO MD DICTATED DATE/TIME: 08/24/24405 SIGNED BY: NEAL CASTRO MD SIGNED DATE/TIME: 08/24/24405 CC: [place] [address] Ph: [phone] DIAGNOSTIC IMAGING Diagnostic Imaging Report : [id number] Signed PATIENT: MOJGAN MOYER I ACCT: [id number] UNIT: [id number] : 1935 LOC: ER ROOM / BED: / AGE / SEX: 89 / F ADM STATUS: REG ER SERVICE 5 ORDERING PHYSICIAN: SELMA PETERSON MD PROCEDURE(s): CXRP - CHEST PORTABLE REASON: seizure and collapse ORDER NUMBER(s): [id number], ACCESSION NUMBER(s): [id number] CHEST RADIOGRAPH Indication: seizure and collapse Technique: Single frontal view of the chest was obtained Comparison: XY CHEST PORTABLE on DOS: 06/21/24, XY CHEST PORTABLE on DOS: 03/01/24 IMPRESSION: There are low lung volumes. The heart is prominent size. Increased interstitial markings and pulmonary vascular congestion. No sizable effusion or pneumothorax. ATED BY: NEAL CASTRO MD DICTATED DATE/TIME: 08/24/24404 SIGNED BY: NEAL CASTRO MD SIGNED DATE/TIME: 08/24/24404 CC: Assessment/Plan Assessment/Plan Assessment: An 89-year-old Uzbek speaking female with a history of hypertension, diabetes, dyslipidemia, CAD, cholecystectomy, hernia repair, and previous stroke/TIA, presents with seizure-like symptoms, likely triggered by a UTI, and is admitted for further evaluation and treatment. Poor historian need further information from the caregiver/family. Plan: #1 Possible breakthrough seizure: Limited history, Uzbek-speaking, noted by family. Status post IV Keppra load, p.o. 500 b.i.d. Keppra, Neurology consult, fall precaution, aspiration precaution, seizure precaution. UTI could be trigger. Head CT unremarkable, #2 Previous history of recurrent seizure: Undergoing evaluation with Neurology reveal possible trigger of hypoglycemia previously but this time seems like UTI triggered it. We will treat underlying conditions along with possible breakthrough seizure. Further recommendation as per Neurology evaluation. #3 Acute UTI: UA positive, urine culture, blood colchicine, IV ceftriaxone, previous microbiology noted no resistant bacteria. CVA angle tenderness negative. #4 Severe Sepsis likely due to above: SIRS response with elevated lactate, on fluid repeat lactate. continue iv abx. #5 Known diabetic: Check HbA1c, at home takes metformin, pioglitazone. Continue SSI, at this point patient is NPO, sc HS SSI mild. #6 Dyslipidemia: Pravastatin 20 mg at home, continue. #7 underlying CAD burden with family history of CAD: Continue aspirin 81 and pravastatin 20 mg home dose. Check CMP. #8 Acute hypoxic respiratory failure: Chest bilateral clear, on 2 L of nasal cannula oxygen with no baseline oxygen, possible aspiration pneumonia, at this point not clear, no leukocytosis, unlabored breathing. If leukocytosis or any breathing distress increases repeat CXR and start empiric antibiotics Covering oral mucosa goals including IV ceftriaxone and azithromycin. Try to wean oxygen to keep saturation above 94%. #9 Chronic normocytic anemia: Iron panel to check, FOBT to rule out GI bleed ing. #10: Urinary incontinence: foleys' catheter to keep the pelvic area dry and clean. #11: Known history of primary hypertension: At home lisinopril 20 mg daily at home. presented with elevated blood pressure but normalized on its own without intervention. Unlikely a case of stroke needing permissive hypertension. Target blood pressure as per AHA / ACC for diabetic adult 130/80. Blood pressure within normal limit. Continue monitoring no need of antihypertensives at this moment. PUD prophylaxis: protonix 40mg Daily. DVT prophylaxis: Lovenox 40mg with brisk movement. Barriers to discharge: Medical diagnosis and management in progress. Neurology evaluation needed. Continue treatment med surge unit. PCP: Patient could not remember Specialist Relevant To Admission: Neurology Case discussed with Dr. Sommer. Code Status: Full Code. Discussion and care decisions needed total 25 minutes bedside. Plan discussed with: Patient, Other (Primary team, RN.) My Orders Orders - CONNIE AVALOS Procedure Category Date Status Time Admit ADMIT 08/24/24 Transmitted 05:13 Nitroglycerin [facility] 08/24/24 In Process Sublingual (Ntrostat 05:15 Morphine Sulfate [facility] 08/24/24 In Process Injection 05:15 Oxygen By Nasal RT 08/24/24 Transmitted Cannula 05:13 Stat Ekg For Chest [facility] 08/24/24 In Process Pain 05:13 Notify Md Of Changes [facility] 08/24/24 In Process From Base 05:13 Scale Adjuster For [facility] 08/24/24 In Process 24 Hours 05:13 Emergency Dysrhythmia [facility] 08/24/24 In Process Protocol 05:13 Rhythm Strips Once [facility] 08/24/24 In Process Every Shift 05:13 Date of Service: Aug 24, 2024 Billing Provider: LADI SOMMER MD Common Visit Codes: [id number] INP/OBS CARE (HIGH) Secondary Visit Codes: [id number] CARE PLAN 30 MINUTES CONNIE AVALOS Aug 24, 2024 05:16 LADI SOMMER MD Aug 24, 2024 12:13
[2024-08-24] MEDS: cefTRIAXone 1GM/50ML D5W 50 ML IV SCH (06:32)
[2024-08-24] MEDS ORDERED: DEXTROSE (50%) 50ML SYRG IV PRN (07:00)
[2024-08-24 07:40] LABS: Amphetamine Screen, Urine Neg (NEGATIVE)
[2024-08-24 07:42] LABS: Barbiturate Scree,Urine Neg (NEGATIVE); Benzodiazephine Screen, Urine Neg (NEGATIVE); Cocaine Screen, Urine Neg (NEGATIVE)
[2024-08-24 07:43] LABS: Cannabinoid Screen, Urine Neg (NEGATIVE); Opiate Scree,Urine Neg (NEGATIVE); Phencyclidine Screen, Urine Neg (NEGATIVE)
[2024-08-24 07:45] LABS: Lactic Acid w/Reflex 2.4 mmol/L (0.4-2.0)
[2024-08-24 08:12] LABS: Alanine Aminotransferase 13 U/L (7-40); Alkaline Phosphatase 73 U/L (46-116); Anion Gap 7 (5-15); BUN/Creatinine Ratio 20.7 (10.0-20.0); Blood Urea Nitrogen 18 mg/dL (9-23); Calcium 9.9 mg/dL (8.7-10.4); Carbon Dioxide 27 mmol/L (20-31); Chloride 104 mmol/L (98-107); Potassium 4.3 mmol/L (3.5-5.1); Sodium 138 mmol/L (136-145)
[2024-08-24 08:13] LABS: Albumin 3.9 g/dL (3.2-4.8); Bilirubin, Total 0.4 mg/dL (0.2-1.0)
[2024-08-24 08:16] LABS: Aspartate Aminotransferase 12 U/L (13-40); Glucose 301 mg/dL (74-106)
[2024-08-24] MEDS: LACTATED RINGER'S 1,000 ML IV SCH (08:57)
[2024-08-24 09:45] VITALS: PULSE 59; RESP 19; O2SAT 98
[2024-08-24] MEDS: ASPirin 81 mg TAB PO SCH (10:45)
[2024-08-24] MEDS: levETIRAcetam 500 MG TAB PO SCH (10:45)
[2024-08-24] MEDS: ACCU-CHEK COMFORT CURVE STRIP VI SCH (12:10)
[2024-08-24] MEDS: InsuLIN REG 1unit/0.01ml Soln (100units/ml) SC SCH (12:22)
--- NOTE | 2024-08-24 14:38 | DVH ---
BILATERAL LOWER EXTREMITY VENOUS DOPPLER CLINICAL HISTORY: elevated D-DIMER Technique: Duplex Doppler evaluation of the deep venous systems of both lower extremities from the co mmon femoral veins to the popliteal veins including color Doppler and spectral/pulsed waveform analys is was performed. COMPARISON: US BILAT LOWER DVT on DOS: 03/12/24, US LT UPPER DVT on DOS: 03/11/24 FINDINGS: The right and left common femoral, superficial femoral, popliteal, posterior tibial and peroneal vei ns appear patent with normal augmentation, phasicity, compressibility and color-flow. IMPRESSION: 1. There is no sonographic evidence for DVT in the lower extremities. HS:Y
--- NOTE | 2024-08-24 14:48 | ECG ---
[facility] Test Date: 2024-08-23 Test Time: 23:58:10 Pat Name: MOJGAN MEEKS Department: ED Room: 0278 Gender: F Compressed Gases Tester: : 1935 Requested By: SELMA PETERSON Order Number: [id number] Reading MD: Mustapha Thakkar Measurements Intervals [place] Rate: 70 P: -22 PA: 222 QRS: 61 QRSD: 106 T: 42 QT: 414 QTc: 447 Interpretive Statements Sinus rhythm Prolonged PA interval Electronically Signed On 08-28-2024 12:34:39 PST by Mustapha Thakkar Please click the below link to view image of tracing.
[2024-08-24 20:00] VITALS: PULSE 75
--- NOTE | 2024-08-24 21:02 | DVHPNRES ---
Progress Note Date Seen: Aug 24, 2024 Resident Creating Document: VIOLETA ROBB RESIDENT Medical Necessity Reason Pt with a Central, PICC or Fol: No Medical Necessity Reason possible seizures vs seizure like activities hyperglycemia Subjective Review of Systems This is an 89 year old and bengali speaking female with past medical history significant for hypertension, diabetes, gallstone induce pancreatitis s/p cholecystectomy who presented to the ED after what is presummed to be a seizure or seizure like activities witness by her grand daughter. Patient does not remember have any seizure like activities and currently not on any anti- seizure medications. Efforts to reach the grand daughtr proved futile. Nevertheless, her initials vitals temp: 98.4, HR:70, RR: 18, and BP: 172/71. Lab work shows: wbc: 3.6, Hgb A1c: 10.6, lactic acid 2.4--> 1.8 , blood sugar: 262--> 192 and positive UA for UTI and D-dimer 0.66 H, CT head showed no acute intracranial abnormality, but cerebral atrophy and prior lacunar infarct. Chest x-ray showed there are low lung volumes. The heart is prominent size. Increased interstitial markings and pulmonary vascular congestion. No sizable effusion or pneumothorax. US venous showed no sonographic evidence for DVT in the lower extremities. Constitutional: Denies fever no chills no feeling of malaise HEENT: Denies headache, ear pain, ear discharges, conjunctivitis, nasal discharge throat pain Cardiovascular: Denies chest pain, palpitation, orthopnea, PND, or pedal edema Respiratory: Denies shortness of breath, cough cough, sputum production, hemoptysis, GI: Denies abdominal pain, nausea, vomiting, diarrhea, hematemesis, hematochezia, : Denies frequency, urgency, hematuria, Endocrine: Denies unintentional weight gain or weight loss, feeling of hot flashes, Logan: Denies easy bruising, bleeding disorders, epistaxis Musculoskeletal: Denies joint pains; endorsed right calf pain Psych: No evidence of depression, vanna, suicidal ideation Past medical history: hypertension, diabetes, gallstone induce pancreatitis Past surgical history: s/p cholecystectomy Social history: retired, no smoking or alcohol Family history: Noncontributory Objective vital signs Vital Sign Date Time Temp Pulse Resp B/P (MAP) Pulse Ox O2 Delivery O2 Flow Rate FiO2 08/24/24 19:04 64 22 113/35 (61) 93 08/24/24 09:45 Nasal Cannula* 2 28 08/24/24 02:00 98.0 98.0 medications Current Medications Medications Dose Ordered Sig/Mumtaz Route Start Time Stop Time Status Last Admin Dose Admin Nitroglycerin 0.4 mg Q5MINP PRN SL 08/24/24 05:15 Morphine Sulfate 2 mg Q30M PRN IV 08/24/24 05:15 Ceftriaxone Sodium 50 ml @ 100 mls/hr DAILY@09 IV 08/24/24 06:30 08/24/24 06:32 100 MLS/HR Levetiracetam 500 mg BID PO 08/24/24 10:00 08/24/24 10:45 500 MG Pravastatin Sodium 20 mg HS PO 08/24/24 22:00 Aspirin 81 mg DAILY PO 08/24/24 10:00 08/24/24 10:45 81 MG Diagnostic Test (Pha) 1 strip Q6HR 08/24/24 12:00 08/24/24 18:35 1 STRIP Insulin Human Regular Q6HR SC 08/24/24 12:00 08/24/24 18:41 3 UNITS Dextrose 50 ml UD PRN IV 08/24/24 07:00 Examination General examination- Not in acute distress HEENT: PEERLA, no acute nasal discharge Chest: S1-S2 audible, rate and rhythm regular, no murmur Lung: Mild crackles, no wheeze or rhonchi Abdomen: Nondistend, BS+, nontenderness, no organomegaly Musculoskeletal: no acute joint swelling or tenderness Lower extremity: Right calf tenderness Neurological: cranial nerves intact, no acute dysarthria or dysphagia Psychiatry-- Normal mood and affect Skin- no acute rash or purpura laboratory and microbiology Laboratory Tests 08/24/24 06:57 08/24/24 00:22 Test 08/24/24 06:57 Range/Units Serum Glucose 301 H 74-106 mg/dL Problem List/Assessment/Plan Problem List/Assessment/Plan Questionable seizure activity --> Normal electrolytes values --> ? previous history, not on any anti-seizure medication -->CT head : No acute intracranial abnormality;Cerebral atrophy and prior lacunar infarct --> swallow evaluation --> Neuro consult Uncontrolled diabetes --> hemoglobin A1c 10.6 --> Serum glucose 262 on admission --> mild sliding scale UTI Ceftriaxone Dyslipidemia --> HOLD oral meds lactic acidosis --> Lactic acid: 2.4--> 1.8 Pulmonary congestion --> IV lasix 40 mg one time Cardiomegaly -->Echo 02/2024: estimated ejection fraction 55%. Right calf pain --> Negative for DVT --> CK: unremarkable History of gallstone induced pancreatitis status post cholecystectomy Care discussed for more than 35 minutes Case and plan discussed with Dr. Solares Plan discussed with: Patient My Orders My Orders Orders - VIOLETA ROBB RESIDENT Procedure Category Date Status Time Bilat Lower Dvt US 08/24/24 Resulted 12:53 St Eval Swallow Funct ST 08/24/24 Logged 45min 13:16 Covid19 Antigen [facility] 08/24/24 Logged Fall Precautions [facility] 08/24/24 In Process Initiated 13:16 Neuro Checks Q2hrs [facility] 08/24/24 In Process 13:16 Pt Request For Service PT 08/24/24 Logged 13:16 Strict Aspiration [facility] 08/24/24 In Process Precautions 13:16 Regular Diet DIET 08/24/24 Transmitted Dinner Date of Service: Aug 24, 2024 Billing Provider: MACK SMITH MD Common Visit Codes: [id number] INP/OBS CARE(HIGH) VIOLETA ROBB Aug 24, 2024 21:02 MACK SMITH MD Aug 26, 2024 10:18
[2024-08-24] MEDS: PRAVASTATIN SODIUM 20 MG TAB PO SCH (22:07)
[2024-08-24 22:35] VITALS: PULSE 67; RESP 18; O2SAT 97
[2024-08-24] MEDS: FUROSEMIDE 40 MG/4 ML VIAL IV ONE (22:47)
[2024-08-25] VITALS (9 sets, daily range): BP systolic 102–138; BP diastolic 39–57; PULSE 57–88; RESP 16–19; TEMP 97.4–100; O2SAT 94–100
[2024-08-25] MEDS ORDERED: INSUINJ37 SC (00:32)
[2024-08-25 02:09] LABS: COVID19 ANTIGEN SOFIA FIA NEGATIVE (NEGATIVE)
[2024-08-25 07:36] LABS: Basophils # (auto) 0 10 ^3/uL (0-0.2); Basophils % (auto) 0.3 % (0.0-2.0); Eosinophils # (auto) 0 10 ^3/uL (0-0.8); Eosinophils % (auto) 0.2 % (0.0-7.0); Hematocrit 34.7 % (36.0-46.0); Hemoglobin 11.8 g/dL (12.2-16.2); Lymphocytes # (auto) 1.1 10 ^3/uL (0.4-5.4); Lymphocytes % (auto) 25.5 % (10.0-50.0); Mean Corpuscular Hgb Conc. 33.8 g/dL (32.0-36.0); Mean Corpuscular Volume 94.6 fL (80.0-100.0); Monocytes # (auto) 0.4 10 ^3/uL (0-1.3); Monocytes % (auto) 9.4 % (0.0-12.0); Neutrophils # (auto) 2.7 10 ^3/uL (1.6-8.6); Neutrophils % (auto) 64.6 % (37.0-80.0); Nucleated Red Blood Cells % 0.3 %; Platelet Count (auto) 173 10^3/uL (140-450); Red Blood Cells 3.67 10^6/uL (4.0-5.20); White Blood Cell 4.2 10^3/uL (4.4-10.8)
[2024-08-25 08:00] LABS: Alanine Aminotransferase 12 U/L (7-40); Albumin 3.9 g/dL (3.2-4.8); Alkaline Phosphatase 60 U/L (46-116); Anion Gap 7 (5-15); BUN/Creatinine Ratio 24.5 (10.0-20.0); Bilirubin, Total 0.5 mg/dL (0.2-1.0); Blood Urea Nitrogen 23 mg/dL (9-23); Calcium 10.4 mg/dL (8.7-10.4); Carbon Dioxide 31 mmol/L (20-31); Chloride 105 mmol/L (98-107); Potassium 3.6 mmol/L (3.5-5.1); Sodium 143 mmol/L (136-145); Total Protein 6.1 g/dL (5.7-8.2)
[2024-08-25 08:01] LABS: Aspartate Aminotransferase 9 U/L (13-40); Glucose 111 mg/dL (74-106)
[2024-08-25] MEDS ORDERED: PNEUMOCOCCAL VACC POLYS 25 MCG/0.5 ML VIAL IM ONE (10:00)
[2024-08-25] MEDS ORDERED: DEXTROSE (50%) 50ML SYRG IV PRN (19:30)
--- NOTE | 2024-08-25 19:56 | DVHPNRES ---
Progress Note Date Seen: Aug 25, 2024 Resident Creating Document: VIOLETA ROBB RESIDENT Medical Necessity Reason Pt with a Central, PICC or Fol: No Medical Necessity Reason Seizure vs seizure like activities Subjective Review of Systems Patient seen and examine at the bedside Patient has no new complaints. No new seizures activities or seizure like activities noted Patient currently on Keppra and Ceftriaxone Objective vital signs Vital Sign Date Time Temp Pulse Resp B/P (MAP) Pulse Ox O2 Delivery O2 Flow Rate FiO2 08/25/24 17:00 97.4 65 16 138/57 (84) 95 97.4 08/25/24 08:00 Room Air* 0 21 Total Intake and Output 08/24/24 08/24/24 08/25/24 15:00 23:00 07:00 Intake Total 283.33 ml 0 ml Output Total 700 ml 1475 ml Balance 283.33 ml -700 ml -1475 ml medications Current Medications Medications Dose Ordered Sig/Mumtaz Route Start Time Stop Time Status Last Admin Dose Admin Nitroglycerin 0.4 mg Q5MINP PRN SL 08/24/24 05:15 Morphine Sulfate 2 mg Q30M PRN IV 08/24/24 05:15 Ceftriaxone Sodium 50 ml @ 100 mls/hr DAILY@09 IV 08/24/24 06:30 08/25/24 10:13 100 MLS/HR Levetiracetam 500 mg BID PO 08/24/24 10:00 08/25/24 10:13 500 MG Pravastatin Sodium 20 mg HS PO 08/24/24 22:00 08/24/24 22:07 20 MG Aspirin 81 mg DAILY PO 08/24/24 10:00 08/25/24 10:13 81 MG Diagnostic Test (Pha) 1 strip Q6HR 08/24/24 12:00 08/25/24 18:00 1 STRIP Insulin Human Regular Q6HR SC 08/24/24 12:00 08/25/24 17:12 6 UNITS Dextrose 50 ml UD PRN IV 08/24/24 07:00 Examination General examination- Not in acute distress HEENT: PEERLA, no acute nasal discharge Chest: S1-S2 audible, rate and rhythm regular, no murmur Lung: Mild crackles, no wheeze or rhonchi Abdomen: Nondistend, BS+, nontenderness, no organomegaly Musculoskeletal: no acute joint swelling or tenderness Lower extremity: Right calf tenderness Neurological: cranial nerves intact, no acute dysarthria or dysphagia Psychiatry-- Normal mood and affect Skin- no acute rash or purpura laboratory and microbiology Laboratory Tests 08/25/24 06:22 Test 08/25/24 06:22 Range/Units Serum Glucose 111 H 74-106 mg/dL Microbiology Date/Time Source Procedure Growth Status 08/25/24 01:35 Nose MRSA Screen - Final Complete 08/24/24 06:57 Blood Blood Culture - Preliminary NO GROWTH AFTER 24 HOURS OF INCUBATION. Resulted 08/24/24 01:58 Voided Urine Urine Culture - Preliminary Resulted Problem List/Assessment/Plan Problem List/Assessment/Plan Questionable seizure activity --> Normal electrolytes values --> ? previous history, not on any anti-seizure medication -->CT head : No acute intracranial abnormality;Cerebral atrophy and prior lacunar infarct --> swallow evaluation --> Neuro consult--> pending Uncontrolled diabetes --> hemoglobin A1c 10.6 --> Serum glucose trending up --> Lantus 10 unit in the morning --> moderate sliding scale UTI --> Continue ceftriaxone --> Pending urine culture Possible sepssis due to UTI --> Contineu ceftriaxone Dyslipidemia --> HOLD oral meds lactic acidosis --> Lactic acid: 2.4--> 1.8 Pulmonary congestion --> IV lasix 40 mg one time Cardiomegaly -->Echo 02/2024: estimated ejection fraction 55%. Right calf pain --> Negative for DVT --> CK: unremarkable History of gallstone induced pancreatitis status post cholecystectomy Care discussed for more than 35 minutes Case and plan discussed with Dr. Solares Plan discussed with: Patient My Orders My Orders Orders - VIOLETA ROBB RESIDENT Procedure Category Date Status Time * Neurology Consult CONS 08/24/24 Transmitted 20:34 * Swallow Request ST 08/24/24 Transmitted 20:59 Date of Service: Aug 25, 2024 Billing Provider: MACK SMITH MD Common Visit Codes: [id number] INP/OBS CARE(HIGH) VIOLETA ROBB Aug 25, 2024 19:56 MACK SMITH MD Aug 26, 2024 10:08
[2024-08-25] MEDS: ACCU-CHEK COMFORT CURVE STRIP VI SCH (22:39)
[2024-08-25] MEDS: InsuLIN REG 1unit/0.01ml Soln (100units/ml) SC SCH (22:40)
[2024-08-26 05:00] VITALS: BP 103/46; PULSE 53; RESP 17; TEMP 98.1; O2SAT 93
[2024-08-26] MEDS: INSULIN LANTUS (GLARGINE) 1 /0.01ml (100units/ml) SC SCH ×2 (06:11→22:00)
[2024-08-26 08:00] VITALS: PULSE 60; PULSE 64; RESP 17; O2SAT 92
[2024-08-26 09:00] VITALS: BP 123/68; PULSE 64; RESP 17; TEMP 98.6; O2SAT 92
[2024-08-26 13:00] VITALS: BP 112/58; PULSE 61; RESP 16; TEMP 98.2; O2SAT 92
--- NOTE | 2024-08-26 14:13 | DVH ---
RENAL ULTRASOUND CLINICAL HISTORY: RULE out kidney stones TECHNIQUE: Multiple ultrasound images of the kidneys and bladder were obtained. COMPARISON: None FINDINGS: The right kidney measures 10.4 cm in length. The left kidney measures 10.6 cm. There is bilateral loida al pelviectasis. There is no sonographic evidence nephrolithiasis. There is no discrete renal lesion identified by ultrasound. There is a Cassidy catheter within the bladder which is decompressed. IMPRESSION: 1. Bilateral renal pelviectasis. There is no sonographic evidence of nephrolithiasis. HS:Y
[2024-08-26 17:00] VITALS: BP 113/61; PULSE 67; RESP 16; TEMP 98; O2SAT 90
[2024-08-26 20:00] VITALS: PULSE 62; PULSE 76; RESP 18; O2SAT 92
--- NOTE | 2024-08-26 20:30 | DVHPNRES ---
Progress Note Date Seen: Aug 26, 2024 Resident Creating Document: VIOLETA ROBB RESIDENT Medical Necessity Reason Pt with a Central, PICC or Fol: No Medical Necessity Reason recurrent seizures no episodes since admission Subjective Review of Systems Patient seen and examine at the bedside. Her daughter present and gave us a history of her mother's seizures activities Patient has no new complaints and has not had any seizure or seizure-like activity since admission to the hospital. According to the daughter, patient was noted to have seizures starting with the right arm then it had progressive the other arm. Patient became stiff stretched in the chair and shaking with her entire body involved. had bladder incontinence. Postictal, patient was noted to be drooling from the right side. Patient used to experience seizure activities in the past. but she has not had an episode in a very long time. This current episode is the most recent. She had a total of 3 episode with each lasting about 5 minutes. Total duration was roughly 35minutes Currently patient is pending evaluation by the neurologist. She is on Keppra and also managing her UTI with ceftriaxone. Objective vital signs Vital Sign Date Time Temp Pulse Resp B/P (MAP) Pulse Ox O2 Delivery O2 Flow Rate FiO2 08/26/24 17:00 98.0 67 16 113/61 (78) 90 98.0 08/26/24 08:00 Room Air* 0 21 Total Intake and Output 08/25/24 08/25/24 08/26/24 15:00 23:00 07:00 Intake Total 50 ml 400 ml 400 ml Output Total 400 ml 550 ml Balance 50 ml 0 ml -150 ml medications Current Medications Medications Dose Ordered Sig/Mumtaz Route Start Time Stop Time Status Last Admin Dose Admin Nitroglycerin 0.4 mg Q5MINP PRN SL 08/24/24 05:15 Morphine Sulfate 2 mg Q30M PRN IV 08/24/24 05:15 Ceftriaxone Sodium 50 ml @ 100 mls/hr DAILY@09 IV 08/24/24 06:30 08/26/24 09:21 100 MLS/HR Levetiracetam 500 mg BID PO 08/24/24 10:00 08/26/24 09:21 500 MG Pravastatin Sodium 20 mg HS PO 08/24/24 22:00 08/25/24 22:30 20 MG Aspirin 81 mg DAILY PO 08/24/24 10:00 08/26/24 09:21 81 MG Insulin Glargine 10 units QAM SC 08/26/24 07:00 08/26/24 06:11 10 UNITS Diagnostic Test (Pha) 1 strip IQ4HR 08/25/24 20:00 08/26/24 16:10 1 STRIP Insulin Human Regular IQ4HR SC 08/25/24 20:00 08/26/24 16:16 6 UNITS Dextrose 50 ml UD PRN IV 08/25/24 19:30 Gabapentin 100 mg TID PO 08/26/24 22:00 Insulin Glargine 6 units HS KS 08/26/24 22:00 Examination General examination- Not in acute distress HEENT: PEERLA, no acute nasal discharge Chest: S1-S2 audible, rate and rhythm regular, no murmur Lung: CTAB, no wheeze or rhonchi Abdomen: Nondistend, BS+, nontenderness, no organomegaly Musculoskeletal: no acute joint swelling or tenderness Lower extremity: no leg edema Neurological: cranial nerves intact, no acute dysarthria or dysphagia Psychiatry-- Normal mood and affect Skin- no acute rash or purpura laboratory and microbiology Laboratory Tests 08/25/24 06:22 Test 08/25/24 06:22 Range/Units Serum Glucose 111 H 74-106 mg/dL Microbiology Date/Time Source Procedure Growth Status 08/25/24 01:35 Nose MRSA Screen - Final Complete 08/24/24 06:57 Blood Blood Culture - Preliminary NO GROWTH AFTER 48 HOURS OF INCUBATION. Resulted 08/24/24 01:58 Voided Urine Urine Culture - Final Complete Problem List/Assessment/Plan Problem List/Assessment/Plan Likely seizure activity vs Status epileptus --> remote history of seizures per daughter --> Normal electrolytes values --> ? previous history, not on any anti-seizure medication -->CT head : No acute intracranial abnormality;Cerebral atrophy and prior lacunar infarct --> swallow evaluation --> Neuro consult--> pending Uncontrolled diabetes --> hemoglobin A1c 10.6 --> Lantus 6 unit at HS --> Serum glucose trending up --> moderate sliding scale UTI --> Continue ceftriaxone --> Urine culture--> Mixed rolanda Possible sepssis due to UTI --> Contineu ceftriaxone Dyslipidemia --> HOLD oral meds lactic acidosis --> Lactic acid: 2.4--> 1.8 Pulmonary congestion --> IV lasix 40 mg one time Cardiomegaly -->Echo 02/2024: estimated ejection fraction 55%. Right calf pain --> Negative for DVT --> CK: unremarkable History of gallstone induced pancreatitis status post cholecystectomy Care discussed for more than 35 minutes Case and plan discussed with Dr. Solares Plan discussed with: Patient, Daughter My Orders My Orders Orders - VIOLETA ROBB Procedure Category Date Status Time Kidney US 08/26/24 Resulted 13:23 Insulin Lantus PHA 08/26/24 In Process (Glargine) (Lantus) 22:00 Dietary Evaluation Review Recommendations by RD: Dietary education by RD Comments: Pt is on CCHO-60 diet and accpting it very well. She has not complaints and no specific dislikes. PO intake 75-100%. Encourage CCHO-60 diet and maintain PO intake at 75% Expected Outcomes/Goals: controlled DM, avoid DM complications Date of Service: Aug 26, 2024 Billing Provider: MACK SMITH MD Common Visit Codes: [id number] INP/OBS CARE(HIGH) VIOLETA ROBB RESIDENT Aug 26, 2024 20:30 MACK SMITH MD Aug 27, 2024 09:20
--- NOTE | 2024-08-26 20:42 | DVHINCON2 ---
Date of service: Aug 26, [address] Barnes Reason for Consultation Motor seizure History of Present Illness 08/23/24 89-year-old female with PMHx HLD, HTN, DM presents postictal s/p seizure- activity. Patient had a witnessed seizure at home by family whom called 911. Patient is pleasantly confused and is a poor historian at this time. Unable to verify if patient has a seizure disorder. No seizure meds listed in medication list per EMS. Patient is hyperglycemic at 341. No other symptoms or modifying factors present at this time. Chief Complaint: Seizure Mr. Moyer is a 89 years old right-handed female with a history of hypertension, diabetes, dyslipidemia, she came to the hospital on 08/23/2024 with a chief company of seizure activity. At this time, she is alert and oriented x3, but she is not a good historian, the following information is obtained from her with our bilingual nurse staff's help I saw on 06/22/2024 for right-sided weakness and convulsion in the right extremities She reports that she had a shaking at home with company amnesia, and she woke up in the hospital, she said she has had many similar events but this is only one that she does not remember Since 06/2024, the patient was has episodic event in that she has body shaking in the right upper extremity, spreading to the lower extremity and then whole- body without loss of consciousness, and she was tried to fight the event. She had similar event in the age of 30s, with associated biting, but no incontinence, the patient was seen in the head echo, and she was treated with Apemin (phenytoin) UDS, 08/24/2024: Negative Urinalysis, 08/24/2024: WBC: 5, urine leukocyte esterase: 2+ WBC/HB/PLT/MCV, 08/25/2024: 4.2/11.8/173/94.6 HGB A1c, 06/22/2024: 10.8 CMP, 08/25/2024: Unremarkable TG/HDL/LDL/HDL, 02/2024: 106/131/74/38 Vitamin B12, 06/22/2024: 388 TSH, 06/22/2024: 1.32 CT head 08/24/2024: 1. No acute intracranial abnormality. 2. Cerebral atrophy and prior lacunar infarct MRI head, 06/21/2024: No evidence of acute intracranial abnormalities Past Medical History Hypertension, diabetes, dyslipidemia Past Surgical History Cholecystectomy, hernia repair Family History: FH: heart attack Hypertension G8 MOTHER Family History Hypertension, diabetes, heart disease Social History She is not a tobacco smoker, she denies a history of alcohol or recreational substance abuse Allergies: Coded Allergies: No Known Drug Allergy (Verified Allergy, Unknown, 03/01/24) Home Meds Active Scripts Aspirin (Aspirin Low Dose) 81 Mg Tab, 81 MG PO DAILY for 30 Days, #30 TAB Prov:PAIGE RAVI 06/24/24 Metformin Hydrochloride (Metformin Hcl) 1,000 Mg Tab, 1 TAB PO BID for 30 Days, #60 TAB 0 Refills Prov:ANTONY OLIVERA DO 03/16/24 Reported Medications Insulin Glargine (Lantus Solostar) 100 Unit/Ml Inj, SC 08/25/24 Metformin Hydrochloride (Metformin Hcl) 1,000 Mg Tab, 1 TAB PO BID 03/01/24 Lisinopril (Lisinopril) 20 Mg Tab, 1 TAB PO DAILY, #30 TAB 5 Refills 03/01/24 Pravastatin Sodium (PRAVACHOL TABLET) 20 Mg Tb, 2 TAB PO HS 03/01/24 Discontinued Reported Medications Pioglitazone Hydrochloride (PIOGLITAZONE HCL) 45 Mg Tab, 1 TAB PO DAILY 03/01/24 Current Medications Current Medications Medications (Trade) Dose Ordered Sig/Mmutaz Route PRN Reason Start Time Stop Time Status Last Admin Insulin Glargine (Lantus) 10 units QAM SC 08/26/24 07:00 08/26/24 06:11 Gabapentin (Neurontin Capsule) 100 mg TID PO 08/26/24 22:00 Insulin Glargine (Lantus) 6 units HS SC 08/26/24 22:00 Review of Systems As above, the other systems are negative Vital Signs Vital Signs Date Time Temp Pulse Resp B/P (MAP) Pulse Ox O2 Delivery O2 Flow Rate FiO2 08/26/24 17:00 98.0 67 16 113/61 (78) 90 98.0 08/26/24 08:00 Room Air* 0 21 Physical Exam GENERAL EXAM: General: the patient is well developed and nourished. No acute distress. HEENT: Normocephalic, neck is supple, no carotid bruits. No mass RESPIRATORY: Normal respiratory effort with symmetrical lung expansion. Lungs clear to auscultation. CARDIOVASCULAR: Regular rate and rhythm with no murmurs. S1, S2. ABDOMEN: Soft, nontender, normal bowel sound NEUROLOGICAL: MENTAL STATUS: Awake and alert. Oriented to person, place, time SPEECH, LANGUAGE, HIGHER CORTICAL FUNCTION: no aphasia or dysathria. CRANIAL NERVES: #2: Intact visual whitaker to confrontation. The optic discs were sharp. #3,4,6: Pupils are equal, round and reactive. EOMs full and conjugate. No nystagmus. #5: Facial sensation intact in all three divisions bilaterally. Mandibular strength intact. #7: Facial muscles symmetrical and strength intact. #8: Hearing grossly normal to voice. #9,10: Uvula and soft palate rise in the midline. Swallow and voice are normal. #11: Trapezius and sternomastoid strength intact bilaterally. #12: Tongue midline. No fasciculations or atrophy. SENSATION: Sensation to touch and pinprick is normal. MOTOR: Normal tone in the upper and lower extremity. Normal muscle bulk. No fasciculations. No abnormal movements or posturing. Muscle strength of the major groups in the upper extremities is 5/5. Muscle strength of the major groups in the lower extremities is 5/5. REFLEXES: Deep tendon reflexes normal and symmetrical. No pathological reflexes. CEREBELLAR/COORDINATION: Finger to nose is normal bilaterally. GAIT/STATION: deferred. Labs/Diagnostic Data Labs Test 08/26/24 16:06 08/25/24 06:22 08/25/24 01:35 08/24/24 11:09 Range/Units POC Glucose 235 H 70-106 mg/dl White Blood Count 4.2 L 4.4-10.8 10^3/uL Red Blood Count 3.67 L 4.0-5.20 10^6/uL Hemoglobin 11.8 L 12.2-16.2 g/dL Hematocrit 34.7 L 36.0-46.0 % Mean Corpuscular Volume 94.6 80.0-100.0 fL Mean Corpuscular Hemoglobin 32.0 28.0-32.0 pg Mean Corpuscular Hemoglobin Concent 33.8 32.0-36.0 g/dL Red Cell Distribution Width 14.0 11.8-14.3 % Platelet Count 173 140-450 10^3/uL Mean Platelet Volume 9.3 6.9-10.8 fL Neutrophils (%) (Auto) 64.6 37.0-80.0 % Lymphocytes (%) (Auto) 25.5 10.0-50.0 % Monocytes (%) (Auto) 9.4 0.0-12.0 % Eosinophils (%) (Auto) 0.2 0.0-7.0 % Basophils (%) (Auto) 0.3 0.0-2.0 % Neutrophils # (Auto) 2.7 1.6-8.6 10 ^3/uL Lymphocytes # (Auto) 1.1 0.4-5.4 10 ^3/uL Monocytes # (Auto) 0.4 0-1.3 10 ^3/uL Eosinophils # (Auto) 0 0-0.8 10 ^3/uL Basophils # (Auto) 0 0-0.2 10 ^3/uL Nucleated Red Blood Cells 0.3 % Sodium Level 143 # 136-145 mmol/L Potassium Level 3.6 3.5-5.1 mmol/L Chloride Level 105 98-107 mmol/L Carbon Dioxide Level 31 20-31 mmol/L Anion Gap 7 5-15 Blood Urea Nitrogen 23 9-23 mg/dL Creatinine 0.94 0.550-1.02 mg/dL Glomerular Filtration Rate Calc 59 >90 mL/min BUN/Creatinine Ratio 24.5 H 10.0-20.0 Serum Glucose 111 H 74-106 mg/dL Calcium Level 10.4 8.7-10.4 mg/dL Total Bilirubin 0.5 0.2-1.0 mg/dL Aspartate Amino Transferase (AST) 9 L 13-40 U/L Alanine Aminotransferase (ALT) 12 7-40 U/L Alkaline Phosphatase 60 46-116 U/L Total Protein 6.1 5.7-8.2 g/dL Albumin 3.9 3.2-4.8 g/dL SARS-CoV-2 Antigen (Rapid) Negative NEGATIVE D-Dimer, Quantitative 0.66 H 0.0-0.49 mg/L FEU Lactic Acid Level 1.8 0.4-2.0 mmol/L Test 08/24/24 06:57 08/24/24 01:58 08/24/24 00:22 Range/Units Iron Level 60 50-170 ug/dL Ferritin 22.5 10-291 ng/mL Creatine Kinase 90 34-145 U/L Urine Color Colorless Yellow Urine Clarity Clear Clear Urine pH 6.5 5.0-9.0 Urine Specific [place] 1.016 1.001-1.035 Urine Protein Negative Negative Urine Ketones Negative Negative Urine Blood Negative Negative /uL Urine Nitrite Negative Negative Urine Bilirubin Negative Negative Urine Urobilinogen Normal Negative mg/dL Urine Leukocyte Esterase 2+ Negative /uL Urine RBC 1 0 - 4 /hpf Urine WBC 5 0 - 5 /hpf Urine Squamous Epithelial Cells Few <5 /hpf Urine Bacteria None seen None Seen /hpf Urine Glucose 4+ H Normal mg/dL Urine Opiates Screen Neg NEGATIVE Urine Fentanyl Screen Neg NEGATIVE Urine Barbiturates Screen Neg NEGATIVE Urine Phencyclidine Screen Neg NEGATIVE Urine Amphetamines Screen Neg NEGATIVE Urine Benzodiazepines Screen Neg NEGATIVE Urine Cocaine Screen Neg NEGATIVE Urine Cannabinoids Screen Neg NEGATIVE Hemoglobin A1c 10.6 H <5.7 % A1C Thyroid Stimulating Hormone (TSH) 3.22 0.55-4.78 uIU/mL Prolactin 29.44 H 2.8-29.2 ng/mL Plasma/Serum Blood Alcohol < 3.0 <10 mg/dL Microbiology Date/Time Source Procedure Growth Status 08/25/24 01:35 Nose MRSA Screen - Final Complete 08/24/24 06:57 Blood Blood Culture - Preliminary NO GROWTH AFTER 48 HOURS OF INCUBATION. Resulted 08/24/24 01:58 Voided Urine Urine Culture - Final Complete Assessment Frequent spells of shaking/spasm in the right extremities ? Partial simple seizure ? Secondary generalized tonic-clonic seizure with atypical feature Plan/Recommendation Monitoring Supportive treatment Telemetry EEG Ativan for seizure breakthrough I do not recommend preventive seizure treatment at this time The patient is not licensed to drive Up to chair Physical therapy More recommendation per clinical course Progress: Poor This medical document was created using an electronic medical record system with [employer] dictation system. Although this document has been carefully reviewed, there may still be some phonetic and typographical errors. These areas are purely typographical due to imperfections of the software programs, and do not reflect any compromise in the patient's medical care Plan discussed with: Patient, Other JEAN CLAUDE THOMASON MD Aug 26, 2024 20:42
[2024-08-26] MEDS ORDERED: LORazepam 2MG/ML-1ML VIAL IV PRN (21:15)
[2024-08-26] MEDS: GABAPENTIN 100 MG CAP PO SCH (22:00)
[2024-08-27] VITALS (9 sets, daily range): BP systolic 115–142; BP diastolic 41–58; PULSE 56–89; RESP 15–19; TEMP 97.6–98.4; O2SAT 89–95
[2024-08-27] MEDS ORDERED: INSLANTI SC (18:08)
[2024-08-27] MEDS ORDERED: GAB100C PO (18:08)
--- NOTE | 2024-08-27 20:36 | DVHDSRES ---
Discharge Summary Date of Admission Resident Creating Document: VIOLETA ROBB RESIDENT Aug 24, 2024 at 05:14 Date of Discharge: Aug 27, 2024 Labs/Diagnostic Data: Laboratory Results Test 08/27/24 17:23 08/25/24 06:22 08/25/24 01:35 08/24/24 11:09 POC Glucose 226 mg/dl (70-106) White Blood Count 4.2 10^3/uL (4.4-10.8) Red Blood Count 3.67 10^6/uL (4.0-5.20) Hemoglobin 11.8 g/dL (12.2-16.2) Hematocrit 34.7 % (36.0-46.0) Mean Corpuscular Volume 94.6 fL (80.0-100.0) Mean Corpuscular Hemoglobin 32.0 pg (28.0-32.0) Mean Corpuscular Hemoglobin Concent 33.8 g/dL (32.0-36.0) Red Cell Distribution Width 14.0 % (11.8-14.3) Platelet Count 173 10^3/uL (140-450) Mean Platelet Volume 9.3 fL (6.9-10.8) Neutrophils (%) (Auto) 64.6 % (37.0-80.0) Lymphocytes (%) (Auto) 25.5 % (10.0-50.0) Monocytes (%) (Auto) 9.4 % (0.0-12.0) Eosinophils (%) (Auto) 0.2 % (0.0-7.0) Basophils (%) (Auto) 0.3 % (0.0-2.0) Neutrophils # (Auto) 2.7 10 ^3/uL (1.6-8.6) Lymphocytes # (Auto) 1.1 10 ^3/uL (0.4-5.4) Monocytes # (Auto) 0.4 10 ^3/uL (0-1.3) Eosinophils # (Auto) 0 10 ^3/uL (0-0.8) Basophils # (Auto) 0 10 ^3/uL (0-0.2) Nucleated Red Blood Cells 0.3 % Sodium Level 143 mmol/L (136-145) Potassium Level 3.6 mmol/L (3.5-5.1) Chloride Level 105 mmol/L (98-107) Carbon Dioxide Level 31 mmol/L (20-31) Anion Gap 7 (5-15) Blood Urea Nitrogen 23 mg/dL (9-23) Creatinine 0.94 mg/dL (0.550-1.02) Glomerular Filtration Rate Calc 59 mL/min (>90) BUN/Creatinine Ratio 24.5 (10.0-20.0) Serum Glucose 111 mg/dL (74-106) Calcium Level 10.4 mg/dL (8.7-10.4) Total Bilirubin 0.5 mg/dL (0.2-1.0) Aspartate Amino Transferase (AST) 9 U/L (13-40) Alanine Aminotransferase (ALT) 12 U/L (7-40) Alkaline Phosphatase 60 U/L (46-116) Total Protein 6.1 g/dL (5.7-8.2) Albumin 3.9 g/dL (3.2-4.8) SARS-CoV-2 Antigen (Rapid) Negative (NEGATIVE) D-Dimer, Quantitative 0.66 mg/L FEU (0.0-0.49) Lactic Acid Level 1.8 mmol/L (0.4-2.0) Test 08/24/24 06:57 08/24/24 01:58 08/24/24 00:22 Iron Level 60 ug/dL (50-170) Ferritin 22.5 ng/mL (10-291) Creatine Kinase 90 U/L (34-145) Urine Color Colorless (Yellow) Urine Clarity Clear (Clear) Urine pH 6.5 (5.0-9.0) Urine Specific [place] 1.016 (1.001-1.035) Urine Protein Negative (Negative) Urine Ketones Negative (Negative) Urine Blood Negative /uL (Negative) Urine Nitrite Negative (Negative) Urine Bilirubin Negative (Negative) Urine Urobilinogen Normal mg/dL (Negative) Urine Leukocyte Esterase 2+ /uL (Negative) Urine RBC 1 /hpf (0 - 4) Urine WBC 5 /hpf (0 - 5) Urine Squamous Epithelial Cells Few /hpf (<5) Urine Bacteria None seen /hpf (None Seen) Urine Glucose 4+ mg/dL (Normal) Urine Opiates Screen Neg (NEGATIVE) Urine Fentanyl Screen Neg (NEGATIVE) Urine Barbiturates Screen Neg (NEGATIVE) Urine Phencyclidine Screen Neg (NEGATIVE) Urine Amphetamines Screen Neg (NEGATIVE) Urine Benzodiazepines Screen Neg (NEGATIVE) Urine Cocaine Screen Neg (NEGATIVE) Urine Cannabinoids Screen Neg (NEGATIVE) Hemoglobin A1c 10.6 % A1C (<5.7) Thyroid Stimulating Hormone (TSH) 3.22 uIU/mL (0.55-4.78) Prolactin 29.44 ng/mL (2.8-29.2) Plasma/Serum Blood Alcohol < 3.0 mg/dL (<10) Other Laboratory Tests 08/25/24 06:22 Brief Hx & Hospital Course: This 89 year old female, amharic speaking only, with a past medical history significant for hypertension, diabetes, gallstone induce pancreatitis s/p cholecystectomy who presented to the ED after what is presummed to be a focal seizure or seizure like activities witness by her daughter and grand daughter. According to the daughter, patient was noted to have seizures starting with the right arm then it had progressive the other arm. Patient became stiff stretched in the chair and shaking with her entire body involved. had bladder incontinence. Postictal, patient was noted to be drooling from the right side. Patient used to experience seizure activities in the past. but she has not had an episode in a very long time. This current episode is the most recent. She had a total of 3 episode with each lasting about 5 minutes. Total duration was roughly 35minutes. She was on Keppra and ceftriaxone for UTI, Throughout hospital stay, she has not had any seizure like activities. She has been doing fine tolerating medications fairly well. Patient was seen by the neurologist who documented that the patient had "questionable partial Partial simple seizure.Secondary generalized tonic-clonic seizure with atypical feature". Discontinued Keppra and recommended EEG. From our standpoint, patient is stable for discharge. Patient has been asked to follow the Neurology outpatient for the EEG. Examination General examination- Not in acute distress HEENT: PEER[place], no acute nasal discharge Chest: S1-S2 audible, rate and rhythm regular, no murmur Lung: CTAB, no wheeze or rhonchi Abdomen: Nondistend, BS+, nontenderness, no organomegaly Musculoskeletal: no acute joint swelling or tenderness Lower extremity: no leg edema Neurological: cranial nerves intact, no acute dysarthria or dysphagia Psychiatry-- Normal mood and affect Skin- no acute rash or purpura Diagnoses Likely seizure activity Uncontrolled diabetes Possible sepsis due to UTI UTI Dyslipidemia lactic acidosis Pulmonary congestion Cardiomegaly Right calf pain Post discharge plan 1. Continue oral antibiotics: nitrofurantion 100 mg bid for 5 more days 2. Return to discharge clinic in 7 days for revaluaiton 3. Follow up with neurologist outpatient for EEG and monitoring 4. Lantus increase to 8 unit at night 5. Follow up with an school cleaner for blood sugar management 6. Return to the ED if you notice any changes from your baseline Case and plan discussed with Dr. Solares Operations or Procedures PATIENT: MOJGAN MEEKS I ACCT: [id number] UNIT: [id number] : 1935 LOC: [facility] ROOM / BED: 0291T / B AGE / SEX: 89 / F ADM STATUS: ADM IN SERVICE 1323 ORDERING PHYSICIAN: VIOLETA ROBB PROCEDURE(s): KIDUS - KIDNEY REASON: RULE out kidney stones ORDER NUMBER(s): [id number], ACCESSION NUMBER(s): [id number] RENAL ULTRASOUND CLINICAL HISTORY: RULE out kidney stones TECHNIQUE: Multiple ultrasound images of the kidneys and bladder were obtained. COMPARISON: None FINDINGS: The right kidney measures 10.4 cm in length. The left kidney measures 10.6 cm. There is bilateral renal pelviectasis. There is no sonographic evidence nephrolithiasis. There is no discrete renal lesion identified by ultrasound. There is a Cassidy catheter within the bladder which is decompressed. IMPRESSION: 1. Bilateral renal pelviectasis. There is no sonographic evidence of nephrolithiasis. HS:Y ATED BY: GONZALO LIANG MD DICTATED DATE/TIME: 08/26/24 1412 Signed PATIENT: MOJGAN MEEKS I ACCT: [id number] UNIT: [id number] : 1935 LOC: [facility] ROOM / BED: [id number] / A AGE / SEX: 89 / F ADM STATUS: ADM IN SERVICE 1253 ORDERING PHYSICIAN: VIOLETA ROBB PROCEDURE(s): BLDVT - BiLat Lower DVT REASON: elevated D-DIMER ORDER NUMBER(s): [id number], ACCESSION NUMBER(s): [id number] BILATERAL LOWER EXTREMITY VENOUS DOPPLER CLINICAL HISTORY: elevated D-DIMER Technique: Duplex Doppler evaluation of the deep venous systems of both lower extremities from the common femoral veins to the popliteal veins including color Doppler and spectral/pulsed waveform analysis was performed. COMPARISON: US BILAT LOWER DVT on DOS: 03/12/24, US LT UPPER DVT on DOS: 03/11/24 FINDINGS: The right and left common femoral, superficial femoral, popliteal, posterior tibial and peroneal veins appear patent with normal augmentation, phasicity, compressibility and color-flow. IMPRESSION: 1. There is no sonographic evidence for DVT in the lower extremities. HS:Y ATED BY: GONZALO LIANG MD DICTATED DATE/TIME: 08/24/24 143 PATIENT: MOJGAN MEEKS I ACCT: [id number] UNIT: [id number] : 1935 LOC: ER ROOM / BED: / AGE / SEX: 89 / F ADM STATUS: REG ER SERVICE 0336 ORDERING PHYSICIAN: SELMA PETERSON MD PROCEDURE(s): HWOCT - HEAD WITHOUT CONTRAST REASON: seizure and collapse ORDER NUMBER(s): [id number], ACCESSION NUMBER(s): [id number] CT HEAD WITHOUT CONTRAST INDICATION: seizure and collapse EXAM DATE: 08/24/2024 03:41 AM COMPARISON: MRI BRAIN HEAD WO CONTRAST on DOS: 06/22/24, CT HEAD WITHOUT CONTRAST on DOS: 06/21/24 RADIATION DOSE: CTDIvol: 58.14 mGy, DLP: 940.01 mGy*cm Technique: Noncontrast CT scans of the head were obtained from the vertex to the skull base. Sagittal and coronal reconstructions were provided. All CT scans at this medical facility are performed using dose modulation techniques as appropriate to a performed exam including the following: Automated exposure control was utilized; adjustment of the MA and/or KV according to patient size; and use of iterative reconstruction technique. FINDINGS: The posterior fossa demonstrates a 4th ventricle to midline without mass impression. The ventricles appear appropriate in size and symmetry, unchanged. Focal hypodensity in the left basal ganglia likely represents prior lacunar infarct. There is diffuse cerebral atrophy. No findings to suggest acute territorial infarction, intracranial mass, or midline shift. No intracranial hemorrhage. The calvarium appears intact. IMPRESSION: 1. No acute intracranial abnormality. 2. Cerebral atrophy and prior lacunar infarct. ATED BY: NEAL CASTRO MD DICTATED DATE/TIME: 08/24/24405 PATIENT: MOJGAN MEEKS I ACCT: [id number] UNIT: [id number] : 1935 LOC: ER ROOM / BED: / AGE / SEX: 89 / F ADM STATUS: REG ER SERVICE 5 ORDERING PHYSICIAN: SELMA PETERSON MD PROCEDURE(s): CXRP - CHEST PORTABLE REASON: seizure and collapse ORDER NUMBER(s): [id number], ACCESSION NUMBER(s): [id number] CHEST RADIOGRAPH Indication: seizure and collapse Technique: Single frontal view of the chest was obtained Comparison: XY CHEST PORTABLE on DOS: 06/21/24, XY CHEST PORTABLE on DOS: 03/01/24 IMPRESSION: There are low lung volumes. The heart is prominent size. Increased interstitial markings and pulmonary vascular congestion. No sizable effusion or pneumothorax. ATED BY: NEAL CASTRO MD DICTATED DATE/TIME: 08/24/24404 Condition at Discharge: Good Final Diagnosis/Problems List Frequent spells of shaking/spasm in the right extremities Possible Partial simple seizure questionable Secondary generalized tonic-clonic seizure with atypical featurss Discharge Disposition: Home Discharge Instruct/Medications Diet: See Comment Diet comment: Diabetic diet Activity: No Restrictions, As Tolerated Follow Up/Referral: 7 days follow up Medications: per med records Discharge Statement: "Patient was advised to return to the ER or call 911 if any headaches, dizziness, shortness of breath, chest pain, abdominal pain, bleeding, fevers, or worsening of medical condition. Patient was counseled about treatment plan, medications, possible side effects, patientverbalized understanding. All questions were answered to the best of my ability. This discharge took greater then 30 minutes in planning, reviewing documentation, counseling the patient, and discussing with other team members." ASSESSMENT ASSESSMENT Assessment Frequent spells of shaking/spasm in the right extremities Possible Partial simple seizure questionable Secondary generalized tonic-clonic seizure with atypical feature Date of Service: Aug 27, 2024 Billing Provider: MACK SMITH MD Common Visit Codes: 92382-[id number] INP/OBS CARE(HIGH), 91665-UWB/OBS DISCH DAY >30min CEZARVIOLETA RESIDENT Aug 27, 2024 20:36 MACK SMITH MD Aug 31, 2024 09:14
--- NOTE | 2024-08-27 21:10 | DVHPN2 ---
Progress Note - Dictate Date Seen: Aug 27, 2024 Medical Necessity Reason Pt with a Central, PICC or Fol: No Subjective Mr. Moyer is a 89 years old right-handed female with a history of hypertension, diabetes, dyslipidemia, she came to the hospital on 08/23/2024 with a chief company of seizure activity. I saw on 06/22/2024 for right-sided weakness and convulsion in the right extremities I have seen examined the patient, I have talked to her nurse, she was doing fine, alert and oriented x3, no new complaints UDS, 08/24/2024: Negative Urinalysis, 08/24/2024: WBC: 5, urine leukocyte esterase: 2+ WBC/HB/PLT/MCV, 08/25/2024: 4.2/11.8/173/94.6 HGB A1c, 06/22/2024: 10.8 CMP, 08/25/2024: Unremarkable TG/HDL/LDL/HDL, 02/2024: 106/131/74/38 Vitamin B12, 06/22/2024: 388 TSH, 06/22/2024: 1.32 CT head 08/24/2024: 1. No acute intracranial abnormality. 2. Cerebral atrophy and prior lacunar infarct MRI head, 06/21/2024: No evidence of acute intracranial abnormalities vital signs Vital Sign Date Time Temp Pulse Resp B/P (MAP) Pulse Ox O2 Delivery O2 Flow Rate FiO2 08/27/24 19:42 98.0 58 18 93 08/27/24 17:05 122/47 (72) 08/27/24 08:00 Room Air* 0 21 Total Intake and Output 08/26/24 08/26/24 08/27/24 15:00 23:00 07:00 Intake Total 50 ml 600 ml 240 ml Output Total 650 ml 1175 ml Balance 50 ml -50 ml -935 ml medications Current Medications Medications Dose Ordered Sig/Mumtaz Route Start Time Stop Time Status Last Admin Dose Admin Nitroglycerin 0.4 mg Q5MINP PRN SL 08/24/24 05:15 Morphine Sulfate 2 mg Q30M PRN IV 08/24/24 05:15 Ceftriaxone Sodium 50 ml @ 100 mls/hr DAILY@09 IV 08/24/24 06:30 08/27/24 09:05 100 MLS/HR Pravastatin Sodium 20 mg HS PO 08/24/24 22:00 08/26/24 22:00 20 MG Aspirin 81 mg DAILY PO 08/24/24 10:00 08/27/24 10:58 81 MG Insulin Glargine 10 units QAM SC 08/26/24 07:00 08/27/24 06:46 10 UNITS Diagnostic Test (Pha) 1 strip IQ4HR 08/25/24 20:00 08/27/24 16:00 1 STRIP Insulin Human Regular IQ4HR SC 08/25/24 20:00 08/27/24 17:29 6 UNITS Dextrose 50 ml UD PRN IV 08/25/24 19:30 Gabapentin 100 mg TID PO 08/26/24 22:00 08/27/24 13:42 100 MG Insulin Glargine 6 units HS SC 08/26/24 22:00 08/26/24 22:00 6 UNITS Lorazepam 1 mg Q5MINP PRN IV 08/26/24 21:15 objective General: the patient is well developed and nourished. No acute distress. MENTAL STATUS: Awake and alert. Oriented to person, place, time SPEECH, LANGUAGE, HIGHER CORTICAL FUNCTION: no aphasia or dysathria. CRANIAL NERVES: Pupils are equal, round and reactive. EOMs full and conjugate. No nystagmus. Facial sensation intact in all three divisions bilaterally. Mandibular strength intact. Facial muscles symmetrical and strength intact. SENSATION: Sensation to touch and pinprick is normal. MOTOR: Normal tone in the upper and lower extremity. Normal muscle bulk. No fasciculations. No abnormal movements or posturing. Muscle strength of the major groups in the extremities is 5/5. REFLEXES: Deep tendon reflexes normal and symmetrical. No pathological reflexes. CEREBELLAR/COORDINATION: Finger to nose is normal bilaterally. GAIT/STATION: deferred. laboratory and microbiology Laboratory Tests 08/25/24 06:22 Test 08/25/24 06:22 Range/Units Serum Glucose 111 H 74-106 mg/dL Problem List Frequent spells of shaking/spasm in the right extremities ? Partial simple seizure ? Secondary generalized tonic-clonic seizure with atypical feature Assessment/Plan Monitoring Supportive treatment Telemetry EEG Ativan for seizure breakthrough I do not recommend preventive seizure treatment at this time The patient is not licensed to drive Up to chair Physical therapy More recommendation per clinical course This medical document was created using an electronic medical record system with [employer] dictation system. Although this document has been carefully reviewed, there may still be some phonetic and typographical errors. These areas are purely typographical due to imperfections of the software programs, and do not reflect any compromise in the patient's medical care Prognosis Poor Dietary Evaluation Review Recommendations by RD: Dietary education by RD Comments: Pt is on CCHO-60 diet and accpting it very well. She has not complaints and no specific dislikes. PO intake 75-100%. Encourage CCHO-60 diet and maintain PO intake at 75% Expected Outcomes/Goals: controlled DM, avoid DM complications Plan discussed with: Other JEAN CLAUDE THOMASON MD Aug 27, 2024 21:10
[2024-08-28 01:08] VITALS: BP 147/58; PULSE 100; RESP 15; TEMP 99.9; O2SAT 99
[2024-08-28 05:00] VITALS: BP_SYST 107; BP_SYST 109; BP_DIAS 46; BP_DIAS 57; PULSE 57; PULSE 86; RESP 14; RESP 18; TEMP 97.8; TEMP 98; O2SAT 92; O2SAT 96
[2024-08-28 09:00] VITALS: BP 109/50; PULSE 54; RESP 18; TEMP 98; O2SAT 93
[2024-08-28] MEDS ORDERED: NITR-52 PO (14:18)
== END 2024-08-28 09:00 | disposition home or self-care (01) | DRG 871 ==
LOC: EDBD 23:56 → ER 23:56 → TELE 08-24 05:14 → TELE-WESTW 08-24 23:50 → WEST WING 08-27 00:58
PROVIDERS: ADMIT Student in an Organized Health Care Education/Training Program; ATTEND Emergency Medicine
DX: A41.9 Sepsis, unspecified organism (principal); J69.0 Pneumonitis due to inhalation of food and vomit; J96.01 Acute respiratory failure with hypoxia; N39.0 Urinary tract infection, site not specified; G40.109 Localization-related (focal) (partial) symptomatic epilepsy and epileptic syndromes with simple partial seizures, not intractable, without status epilepticus; R65.20 Severe sepsis without septic shock; E11.65 Type 2 diabetes mellitus with hyperglycemia; I51.7 Cardiomegaly; D64.9 Anemia, unspecified; I25.10 Atherosclerotic heart disease of native coronary artery without angina pectoris; Z20.822 Contact with and (suspected) exposure to COVID-19; E78.5 Hyperlipidemia, unspecified; M79.661 Pain in right lower leg; Z86.73 Personal history of transient ischemic attack (TIA), and cerebral infarction without residual deficits; Z83.3 Family history of diabetes mellitus; Z82.49 Family history of ischemic heart disease and other diseases of the circulatory system; Z79.82 Long term (current) use of aspirin; Z79.899 Other long term (current) drug therapy; Z90.49 Acquired absence of other specified parts of digestive tract; Z79.84 Long term (current) use of oral hypoglycemic drugs
CPT/HCPCS: 36415; 70450; 71045; 76775; 80048; 80053; 80307; 80320; 81001; 82550; 82728; 82962; 83036; 83540; 83605; 84146; 84443; 85025; 85379; 87040; 87081; 87086; 87426; 93005; 93970; 96361; 96365; 96367; 97110; 97116; 97163; 97530; G0378; J1815

== ENCOUNTER → 2024-12-01 | Outpatient (CLI) | payer MEDICARE, MEDICAID ==
[~2024-12-01] MED LIST changes: +GAB100C PO; +INSLANTI SC; +INSUINJ37 SC; +NITR-52 PO; -PIOG1TAB51 PO
== END | disposition home or self-care (01) ==
LOC: LAB 15:10
PROVIDERS: ATTEND Internal Medicine
DX: K92.1 Melena (principal)
CPT/HCPCS: 82270

== ENCOUNTER → 2024-12-01 | Outpatient (CLI) | payer MEDICARE, MEDICAID ==
[2024-12-01 15:04] LABS: Basophils # (auto) 0 10 ^3/uL (0-0.2); Basophils % (auto) 0.3 % (0.0-2.0); Eosinophils # (auto) 0 10 ^3/uL (0-0.8); Eosinophils % (auto) 0.1 % (0.0-7.0); Hematocrit 38.5 % (36.0-46.0); Lymphocytes # (auto) 1.6 10 ^3/uL (0.4-5.4); Lymphocytes % (auto) 21.9 % (10.0-50.0); Mean Corpuscular Hemoglobin 31.6 pg (28.0-32.0); Mean Corpuscular Hgb Conc. 33.9 g/dL (32.0-36.0); Mean Corpuscular Volume 93.3 fL (80.0-100.0); Monocytes # (auto) 0.5 10 ^3/uL (0-1.3); Monocytes % (auto) 7.2 % (0.0-12.0); Neutrophils # (auto) 5.3 10 ^3/uL (1.6-8.6); Neutrophils % (auto) 70.5 % (37.0-80.0); Platelet Count (auto) 172 10^3/uL (140-450); Red Blood Cells 4.13 10^6/uL (4.0-5.20); Red Cell Distribution Width 13.5 % (11.8-14.3); White Blood Cell 7.4 10^3/uL (4.4-10.8)
[2024-12-01 15:58] LABS: Alanine Aminotransferase 18 U/L (7-40); Albumin 4.7 g/dL (3.2-4.8); Alkaline Phosphatase 76 U/L (46-116); Anion Gap 7 (5-15); BUN/Creatinine Ratio 25.4 (10.0-20.0); Bilirubin, Total 0.4 mg/dL (0.2-1.0); Sodium 137 mmol/L (136-145); Total Protein 7.4 g/dL (5.7-8.2)
[2024-12-01 16:06] LABS: Aspartate Aminotransferase < 8 U/L (13-40); Blood Urea Nitrogen 29 mg/dL (9-23); Calcium 10.9 mg/dL (8.7-10.4); Carbon Dioxide 32 mmol/L (20-31); Chloride 98 mmol/L (98-107); Glucose 281 mg/dL (74-106)
== END | disposition home or self-care (01) ==
LOC: LAB 14:46
PROVIDERS: ATTEND Internal Medicine
DX: I10 Essential (primary) hypertension (principal); E11.9 Type 2 diabetes mellitus without complications
CPT/HCPCS: 36415; 80053; 85025